=== PATIENT | male | born 1955 | race Caucasian/White ===

== ENCOUNTER 2017-12-02 15:13 | Inpatient (IN) | payer BC ==
[~2017-12-02 15:13] MED LIST: Metoprolol Tartrate 25 MG Tab PO SCH
[2017-12-02] MEDS ORDERED: Sodium Chloride 0.9% 10 ML Syringe FLUSH PRN (15:19)
[2017-12-02] MEDS ORDERED: Diltiazem 50 MG/10 ML SDV IVPUSH ONE ×2 (15:20→23:23)
[2017-12-02] MEDS ORDERED: Diltiazem 125 MG in Sodium Chloride 0.9% 100 ML IV SCH (15:30)
--- NOTE | 2017-12-02 15:35 | EDM.PDOC ---
ED HPI GENERAL MEDICAL PROBLEM - General Chief Complaint: Cardiovascular Problem Stated Complaint: [facility] Time Seen by Provider: 12/02/17 15:15 Source of Information: Reports: Patient, EMS, Provider History Limitations: Reports: No Limitations - History of Present Illness INITIAL COMMENTS - FREE TEXT/NARRATIVE: The patient presents by [facility] from Dr Espinoza's office with a rapid heart rate. This all started this weekend on Wednesday. The patient was outside in the heat and then noticed he was fatigued and light headed at times. He was also short of breath and at times noticed his heart was racing. He tried to drink plenty of fluids but that did not help. He had near syncope 4 times since then. He had no chest pain but his chest felt a little funny. He has no history of any medical problems. This has never happened before. He has no fever, chills, cough, chest pain, shortness of breath, abdominal pain, nausea or vomiting. He does not smoke. He saw Dr Espinoza today who did an EKG that showed a tachycardia that may be SVT. EMS had him bear down and his heart rate slowed and they could see flutter waves. Onset: Gradual Duration: Day(s): (6) Severity: Moderate Improves with: Reports: None Worsens with: Reports: None Associated Symptoms: Reports: Shortness of Breath. Denies: Chest Pain, Cough, Fever/Chills, Headaches, Nausea/Vomiting - Related Data Allergies Allergy/AdvReac Type Severity Reaction Status Date / Time No Known Allergies Allergy Verified 12/02/17 15:23 Home Meds: Home Meds Cholecalciferol (Vitamin D3) [Vitamin D3] 1 cap PO DAILY 12/02/17 [History] [place]-3/DHA/Epa/Fish Oil [[place]-3 EC Softgel] 1 each PO DAILY 12/02/17 [History] Red Yeast Rice 1 cap PO DAILY 12/02/17 [History] Scopolamine [Transderm-Scop] 1.5 mg TRDERM DAILY 12/02/17 [History] Past Medical History - Past Health History Medical/Surgical History: Denies Medical/Surgical History Social & Family History - Tobacco Use Smoking Status *Q: Never Smoker - Caffeine Use Caffeine Use: Reports: Coffee - Recreational Drug Use Recreational Drug Use: No ED ROS GENERAL - Review of Systems Review Of Systems: See Below Constitutional: Reports: No Symptoms HEENT: Reports: No Symptoms Respiratory: Reports: Shortness of Breath Cardiovascular: Reports: Lightheadedness, Palpitations, Other (Near syncope) Endocrine: Reports: No Symptoms GI/Abdominal: Reports: No Symptoms : Reports: No Symptoms Musculoskeletal: Reports: No Symptoms ED EXAM, GENERAL - Physical Exam Exam: See Below Exam Limited By: No Limitations General Appearance: Alert, No Apparent Distress Ears: Normal External Exam Nose: Normal Inspection Head: Atraumatic, Normocephalic Neck: Normal Inspection Respiratory/Chest: No Respiratory Distress, Lungs Clear, Normal Breath Sounds Cardiovascular: No Edema, No Murmur, Tachycardia GI/Abdominal: Soft, Non-Tender, No Organomegaly, No Mass Back Exam: Normal Inspection Extremities: Normal Inspection Neurological: Alert, Oriented, No Motor/Sensory Deficits EKG INTERPRETATION EKG Date: 12/02/17 Time: 14:25 Rhythm: A-Flutter Rate (Beats/Min): 140 [place]: Normal QRS: Normal ST-T: Normal QT: Normal Course - Vital Signs Last Recorded V/S: Last Vital Signs Temp 98 F 12/02/17 15:15 Pulse 141 H 12/02/17 15:33 Resp 18 12/02/17 15:15 BP 112/92 H 12/02/17 15:33 Pulse Ox 98 12/02/17 15:15 - Orders/Labs/Meds Orders: Active Orders 24 hr Category Date Time Status Cardiac Monitoring [RC] . DIRECTED Care 12/02/17 15:19 Active Peripheral IV Care [RC] . DIRECTED Care 12/02/17 15:20 Active Chest 1V Frontal [CR] Stat Exams 12/02/17 15:20 Taken Diltiazem 125 mg Med 12/02/17 15:30 Active Sodium Chloride 0.9% [Normal Saline] 100 ml IV TITRATE Sodium Chloride 0.9% [Normal Saline] 1,000 ml Med 12/02/17 15:30 Active IV ASDIRECTED Sodium Chloride 0.9% [Saline Flush] Med 12/02/17 15:19 Active 10 ml FLUSH ASDIRECTED PRN Peripheral IV Insertion Adult [OM.PC] Stat Oth 12/02/17 15:19 Ordered Medication Orders Diltiazem HCl 125 mg/ Sodium (Chloride) 125 mls @ 10 mls/hr IV TITRATE MINDI; Protocol Last Admin: 12/02/17 15:44 Dose: 10 mg/hr, 10 mls/hr Sodium Chloride (Normal Saline) 1,000 mls @ 125 mls/hr IV ASDIRECTED MINDI Last Admin: 12/02/17 15:40 Dose: 125 mls/hr Sodium Chloride (Saline Flush) 10 ml FLUSH ASDIRECTED PRN PRN Reason: Keep Vein Open Last Admin: 12/02/17 15:45 Dose: 10 ml Meds: Medications Generic Name Dose Route Start Last Admin Trade Name Freq PRN Reason Stop Dose Admin Diltiazem HCl 125 mg/ Sodium 125 mls @ 10 mls/hr 12/02/17 15:30 12/02/17 15: 44 Chloride IV 10 mg/hr TITRATE MINDI 10 mls/hr Administration Protocol 10 MG/HR Sodium Chloride 1,000 mls @ 125 mls/hr 12/02/17 15:30 12/02/17 15:40 Normal Saline IV 125 mls/hr ASDIRECTED MINDI Administration Sodium Chloride 10 ml 12/02/17 15:19 12/02/17 15:45 Saline Flush FLUSH 10 ml ASDIRECTED PRN Administration Keep Vein Open Discontinued Medications Generic Name Dose Route Start Last Admin Trade Name Freq PRN Reason Stop Dose Admin Diltiazem HCl 10 mg 12/02/17 15:20 12/02/17 15:33 Cardizem IVPUSH 12/02/17 15:21 10 mg ONETIME ONE Administration - Re-Assessments/Exams Free Text/Narrative Re-Assessment/Exam: 12/02/17 15:38 I ordered an IV saline lock, cardizem 10mg bolus and cardizem drip at 10mg/hr. 12/02/17 16:05 He will slow down at times and you can see obvious flutter waves. His CBC and CMP look good. His troponin is negative. His TSH is normal. His D-dimer is normal. I feel he needs to be admitted. I called Dr Millan and he agreed to the admission. I called Dr Espinoza to up date him. Departure - Departure Time of Disposition: 16:10 Disposition: Admitted As Inpatient 65 Condition: Fair Clinical Impression: Atrial flutter with rapid ventricular response, Lightheaded, Near syncope Forms: ED Department Discharge - My Orders Last 24 Hours: My Active Orders 12/02/17 15:19 Cardiac Monitoring [RC] . DIRECTED Sodium Chloride 0.9% [Saline Flush] 10 ml FLUSH ASDIRECTED PRN Peripheral IV Insertion Adult [OM.PC] Stat 12/02/17 15:20 Peripheral IV Care [RC] . DIRECTED Chest 1V Frontal [CR] Stat 12/02/17 15:30 Diltiazem 125 mg Sodium Chloride 0.9% [Normal Saline] 100 ml IV TITRATE Sodium Chloride 0.9% [Normal Saline] 1,000 ml IV ASDIRECTED - Assessment/Plan Last 24 Hours: My Active Orders 12/02/17 15:19 Cardiac Monitoring [RC] . DIRECTED Sodium Chloride 0.9% [Saline Flush] 10 ml FLUSH ASDIRECTED PRN Peripheral IV Insertion Adult [OM.PC] Stat 12/02/17 15:20 Peripheral IV Care [RC] . DIRECTED Chest 1V Frontal [CR] Stat 12/02/17 15:30 Diltiazem 125 mg Sodium Chloride 0.9% [Normal Saline] 100 ml IV TITRATE Sodium Chloride 0.9% [Normal Saline] 1,000 ml IV ASDIRECTED
[2017-12-02] MEDS: Sodium Chloride 0.9% 1,000 ML IV SCH ×2 (15:40→22:40)
[2017-12-02] MEDS ORDERED: Sodium Chloride 0.9% 500 ML IV ONE (17:11)
--- NOTE | 2017-12-02 19:41 | PCM.HP ---
H&P History of Present Illness - General Date of Service: 12/02/17 Admit Problem/Dx: Admission Diagnosis/Problem Admission Diagnosis/Problem Atrial flutter Source of Information: Patient, Family, Old Records, Provider, RN Notes Reviewed History Limitations: Reports: No Limitations - History of Present Illness Initial Comments - Free Text/Narative: This is a 61 yo healthy looking white male with hx/o JONATHAN on CPAP who comes in for evaluation of heart palpitation along with near syncope and was found in atrial flutter with 2:1 on conduction with a rapid rate as high as 150s. He was initially evaluated at his PCP's office for possible heat exhaustions and he was noted having SVT/A-flutter with heart rates in the 140s. Per patient, he has been working outside since the under extreme heat condition. Since that time, has been feeling lightheaded and dizzy although he has been drinking adequate fluids. He also develops shortness of breath, nausea , heart palpitation, decreased appetite and fatigue but denies any symptoms of chest pain or headaches. Additionally, he reports multiple near syncopal episode and his symptoms get worse when he stands up. Patient carries no history of cardiac or pulmonary disease. His initial workup in the clinic shows a fairly unremarkable CBC. His BMP is significant for glucose of 104, anion gap of 9, and AST of 12. His initial workup in emergency department shows a normal troponin and d-dimer level. Patient received initial treatment in the emergency department with Cardizem drip before he was sent to the unit for further management. He is being admitted for management of Atrial flutter with RVR. He is full code. - Related Data Allergies/Adverse Reactions: Allergies Allergy/AdvReac Type Severity Reaction Status Date / Time No Known Allergies Allergy Verified 12/02/17 15:23 Home Medications: Home Meds Cholecalciferol (Vitamin D3) [Vitamin D3] 1 cap PO DAILY 12/02/17 [History] [place]-3/DHA/Epa/Fish Oil [[place]-3 EC Softgel] 1 each PO DAILY 12/02/17 [History] Red Yeast Rice 1 cap PO DAILY 12/02/17 [History] Scopolamine [Transderm-Scop] 1.5 mg TRDERM DAILY 12/02/17 [History] Past Medical History - Past Health History Medical/Surgical History: Denies Medical/Surgical History Social & Family History - Tobacco Use Smoking Status *Q: Never Smoker - Caffeine Use Caffeine Use: Reports: Coffee - Recreational Drug Use Recreational Drug Use: No H&P Review of Systems - Review of Systems: Review Of Systems: ROS reveals no pertinent complaints other than HPI. Exam - Exam Exam: See Below - Vital Signs Vital Signs: Last Vital Signs Temp 36.6 C 12/02/17 15:15 Pulse 141 H 12/02/17 15:33 Resp 18 12/02/17 15:15 BP 112/92 H 12/02/17 15:33 Pulse Ox 98 12/02/17 15:15 Weight: 93.44 kg - Exam General: Alert, Oriented, Cooperative, Mild Distress HEENT: Conjunctiva Clear, EACs Clear, EOMI, Hearing Intact, Mucosa Moist & [place] , Nares Patent, Posterior Pharynx Clear, Pupils Equal, Pupils Reactive, TMs Clear Neck: Supple, Trachea Midline, +2 Carotid Pulse wo Bruit, Full Range of Motion. No: Thyromegaly Lungs: Clear to Auscultation, Normal Respiratory Effort Cardiovascular: Irregular Rhythm, Other (Irregular Rate). No: Systolic Murmur, Diastolic Murmur GI/Abdominal Exam: Normal Bowel Sounds, Soft, Non-Tender, No Organomegaly, No Distention, No Abnormal Bruit, No Mass (Male) Exam: Deferred Rectal (Males) Exam: Deferred Back Exam: Normal Inspection, Full Range of Motion Extremities: Normal Inspection, Normal Range of Motion, Non-Tender, No Pedal Edema, Normal Capillary Refill Peripheral Pulses: 3+: Posterior Tibial (L), Posterior Tibial (R), Dorsalis Pedis (L), Dorsalis Pedis (R) Skin: Warm, Dry, Intact Neuro Extensive - Mental Status: Oriented x3, Normal Cognition, Memory Intact Neuro Extensive - Motor, Sensory, Reflexes: CN II-XII Intact, Normal Gait Psychiatric: Alert, Normal Affect, Normal Mood - Patient Data Result Diagrams: 12/03/17 05:37 12/03/17 05:37 EKG INTERPRETATION EKG Date: 12/02/17 Time: 14:25 Rhythm: A-Flutter (2:1 conduction) Rate (Beats/Min): 14 [place]: Normal QRS: Normal ST-T: Normal QT: Normal Comparison: NA - No Prior EKG Problem List Initiated/Reviewed/Updated: Yes Orders Last 24hrs: Active Orders 24 hr Category Date Time Status Patient Status [ADT] Routine ADT 12/02/17 18:55 Active Cardiac Monitoring [RC] . DIRECTED Care 12/02/17 15:19 Active Peripheral IV Care [RC] . DIRECTED Care 12/02/17 15:20 Active Chest 1V Frontal [CR] Stat Exams 12/02/17 15:20 Taken Cholecalciferol (Vitamin D3) [Vitamin D3] Med 12/03/17 09:00 Ordered 1 cap PO DAILY Diltiazem 125 mg Med 12/02/17 15:30 Active Sodium Chloride 0.9% [Normal Saline] 100 ml IV TITRATE [place]-3/DHA/Epa/Fish Oil [[place]-3 EC Softgel] Med 12/03/17 09:00 Ordered 1 each PO DAILY Red Yeast Rice [Red Yeast Rice] Med 12/03/17 09:00 Ordered 1 cap PO DAILY Scopolamine [Transderm-Scop] Med 12/03/17 09:00 Ordered 1.5 mg TRDERM DAILY Sodium Chloride 0.9% [Normal Saline] 1,000 ml Med 12/02/17 15:30 Active IV ASDIRECTED Sodium Chloride 0.9% [Saline Flush] Med 12/02/17 15:19 Active 10 ml FLUSH ASDIRECTED PRN Peripheral IV Insertion Adult [OM.PC] Stat Oth 12/02/17 15:19 Ordered Medication Orders Cholecalciferol (Vitamin D3) unit PO DAILY MINDI Diltiazem HCl 125 mg/ Sodium (Chloride) 125 mls @ 10 mls/hr IV TITRATE MINDI; Protocol Last Titration: 12/02/17 18:20 Dose: 5 mg/hr, 5 mls/hr Admin: 12/02/17 15:44 Dose: 10 mg/hr, 10 mls/hr Sodium Chloride (Normal Saline) 1,000 mls @ 125 mls/hr IV ASDIRECTED MINDI Last Admin: 12/02/17 15:40 Dose: 125 mls/hr Non-Formulary Medication ([place]-3/Dha/Epa/Fish Oil [[place]-3 Ec Softgel]) 1 each PO DAILY MINDI Non-Formulary Medication (Red Yeast Rice [Red Yeast Rice]) 1 cap PO DAILY MINDI Scopolamine (Transderm-Scop) 1.5 mg TRDERM DAILY MINDI Sodium Chloride (Saline Flush) 10 ml FLUSH ASDIRECTED PRN PRN Reason: Keep Vein Open Last Admin: 12/02/17 15:45 Dose: 10 ml Assessment/Plan Comment:: Assessment/Plan: Acute: Atrial Flutter w/ RVR - Initially seen at the clinic and was diagnosed with SVT/A-Flutter with 2:1 conduction - HR as high as 150s - Risk factor: Heat Exhaustion and Heavy Caffeine Intake (Drinks significant amount of coffee throughout the day per ) - Troponin and D-Dimer both negative - Check for thyroid panel - Received Cardizem drip in ED but his pressure is now in the hypotensive range - Discontinued Cardizem and will out him ro Metoprolol Tartrate 25 mg po BID and PRN IV Lopressor 5 mg Q4H for HR > 110 - [id number] Score is 0; if converted he probably would not need anticoagulant; low dose ASA would be sufficient - Offered anticoagulation: Traditional vs NOACs--> he selected novel anticoagulation with preference to eliquis - I would consider anticoagulation even though his [id number] Score is 0 as he has been on this rhythm for over 48 hrs; he may have a clot in his heart until proven wrong with 2D echo. Relative Hypotension - 2/2 Cardizem - Will d/c CBB Plan: Admit to ICU Resume Home Meds Routine AM Labs Thyroid Panel and UDS if not already done Eliquis 5 mg po BID first dose tonight for stroke and dvt prophylaxis Diet regular Advised to cut down caffeine intake 2D echo in AM Additional orders as above Code status: 1
[2017-12-02] MEDS ORDERED: LORazepam 2 MG/ML SDV IV PRN (19:42)
[2017-12-02] MEDS ORDERED: Promethazine 12.5 MG in Sodium Chloride 0.9% 50 ML IV PRN (19:42)
[2017-12-02] MEDS ORDERED: HYDROmorphone 0.5 MG/0.5 ML SYRINGE IVPUSH PRN (19:42)
[2017-12-02] MEDS ORDERED: Albuterol/Ipratropium 3.0-0.5 MG/3 ML Neb Soln NEB PRN (19:42)
[2017-12-02] MEDS ORDERED: Acetaminophen 325 MG Tab PO PRN (19:42)
[2017-12-02] MEDS ORDERED: Ondansetron 4 MG/2 ML SDV IV PRN (19:42)
[2017-12-02] MEDS ORDERED: Temazepam 7.5 MG Cap PO PRN (19:42)
[2017-12-02] MEDS ORDERED: Polyethylene Glycol 3350 Powder 17 GM Packet PO PRN (19:42)
[2017-12-02] MEDS ORDERED: Docusate Sodium 100 MG Cap PO PRN (19:42)
[2017-12-02] MEDS ORDERED: Acetaminophen/HYDROcodone 325-5 MG Tab PO PRN (19:42)
[2017-12-02] MEDS ORDERED: Bisacodyl 5 MG Tab PO PRN (19:42)
[2017-12-02] MEDS ORDERED: Metoprolol Tartrate 5 MG/5 ML SDV ONE ×2 (20:03→21:59)
[2017-12-02] MEDS ORDERED: Metoprolol Tartrate 5 MG/5 ML SDV IVPUSH ONE (20:03)
[2017-12-02] MEDS ORDERED: Metoprolol Tartrate 25 MG Tab PO ONE ×2 (20:29→21:00)
[2017-12-02] MEDS ORDERED: LORazepam 2 MG/ML SDV IVPUSH PRN (20:30)
[2017-12-02] MEDS ORDERED: Metoprolol Tartrate 5 MG/5 ML SDV IVPUSH PRN (20:30)
[2017-12-02] MEDS ORDERED: Acetaminophen/Butalbital/Caffeine 325-50-40 MG Tab PO PRN (20:43)
[2017-12-02] MEDS ORDERED: Metoprolol Tartrate 50 MG Tab ONE ×2 (21:17→22:28)
[2017-12-02] MEDS: Apixaban 5 MG Tab PO SCH (21:27)
[2017-12-02] MEDS: Metoprolol Tartrate 50 MG Tab PO SCH (22:29)
[2017-12-02] MEDS: Metoprolol Tartrate 5 MG/5 ML SDV IVPUSH PRN (22:43)
[2017-12-02] MEDS ORDERED: Esmolol/Normal Saline 2.5 GM/250 ML BAG IV SCH (23:00)
[2017-12-02] MEDS ORDERED: Diltiazem 50 MG/10 ML SDV ONE (23:27)
[2017-12-02] MEDS ORDERED: Diltiazem 50 MG/10 ML SDV IVPUSH PRN (23:58)
[2017-12-03] MEDS ORDERED: Temazepam 7.5 MG Cap ONE (00:56)
[2017-12-03] MEDS: Sodium Chloride 0.9% 1,000 ML IV SCH ×2 (06:11→16:11)
[2017-12-03] MEDS ORDERED: HYDROmorphone 0.5 MG/0.5 ML Syringe IVPUSH PRN (07:15)
[2017-12-03] MEDS ORDERED: Scopolamine 1.5 MG Transdermal Patch TRDERM SCH (09:00)
[2017-12-03] MEDS ORDERED: Cholecalciferol (Vitamin D3) 5,000 UNIT Tab PO SCH (09:00)
[2017-12-03] MEDS ORDERED: RED YEAST RICE PO SCH (09:00)
[2017-12-03] MEDS ORDERED: Fish Oil/Omega-3 Fatty Acids 1 Gm Cap PO SCH (09:00)
[2017-12-03] MEDS ORDERED: Calcium Carbonate 600 MG Tab PO ONE (09:30)
[2017-12-03] MEDS: Apixaban 5 MG Tab PO SCH (09:58)
[2017-12-03] MEDS: Metoprolol Tartrate 50 MG Tab PO SCH (09:58)
[2017-12-03] MEDS: Metoprolol Tartrate 5 MG/5 ML SDV IVPUSH PRN (09:59)
--- NOTE | 2017-12-03 10:06 | PCM.PN ---
- General Info Date of Service: 12/03/17 Admission Dx/Problem (Free Text): Admission Diagnosis/Problem Admission Diagnosis/Problem Atrial flutter Subjective Update: Follow Up Functional Status: Reports: Pain Controlled, Tolerating Diet, Ambulating, Urinating - Review of Systems General: Denies: Fever, Weakness, Fatigue, Malaise, Chills HEENT: Reports: No Symptoms Pulmonary: Reports: No Symptoms Cardiovascular: Denies: Chest Pain, Palpitations, Dyspnea on Exertion, Edema, Lightheadedness Gastrointestinal: Denies: Abdominal Pain, Decreased Appetite, Nausea, Vomiting Genitourinary: Denies: No Symptoms Musculoskeletal: Reports: No Symptoms Skin: Reports: No Symptoms Neurological: Denies: Confusion, Dizziness, Seizure, Syncope, Difficulty Walking , Weakness, Gait Disturbance Psychiatric: Denies: Confusion, Anxiety, Agitation, Hallucinations Systems Review Comment:: No overnight or acute issues. He denies any heart palpitations, shortness of breath or chest pain. He felt awful when he drank a cup of coffee this AM. His heart rate is now in the 120s. - Patient Data Vitals - Most Recent: Last Vital Signs Temp 37.1 C 12/03/17 04:00 Pulse 125 H 12/03/17 09:59 Resp 16 12/03/17 08:00 BP 98/82 12/03/17 09:59 Pulse Ox 100 12/03/17 08:00 Weight - Most Recent: 93.44 kg I&O - Last 24 Hours: Intake & Output 12/02/17 12/03/17 12/03/17 22:59 06:59 14:59 Intake Total 1629 Balance 1629 Lab Results Last 24 Hours: Laboratory Results - last 24 hr 12/02/17 12/03/17 12/03/17 Range/Units 15:10 00:55 05:37 WBC 3.33 L (4.23-9.07) K/mm3 RBC 4.26 L (4.63-6.08) M/mm3 Hgb 13.1 L (13.7-17.5) gm/L Hct 40.3 (40.1-51.0) % MCV 94.6 H (79.0-92.2) fl MCH 30.8 (25.7-32.2) pg MCHC 32.5 (32.2-35.5) g/dl RDW Std Deviation 44.4 H (35.1-43.9) fL Plt Count 188 (163-337) K/mm3 MPV 10.2 (9.4-12.3) fl Neut % (Auto) 63.7 (34.0-67.9) % Lymph % (Auto) 26.1 (21.8-53.1) % [place] % (Auto) 8.4 (5.3-12.2) % Eos % (Auto) 1.5 (0.8-7.0) Baso % (Auto) 0.3 (0.1-1.2) % Neut # (Auto) 2.12 (1.78-5.38) K/mm3 Lymph # (Auto) 0.87 L (1.32-3.57) K/mm3 [place] # (Auto) 0.28 L (0.30-0.82) K/mm3 Eos # (Auto) 0.05 (0.04-0.54) K/mm3 Baso # (Auto) 0.01 (0.01-0.08) K/mm3 Sodium (136-145) mEq/L Potassium (3.5-5.1) mEq/L Chloride (98-107) mEq/L Carbon Dioxide (21-32) mEq/L Anion Gap (5-15) BUN (7-18) mg/dL Creatinine (0.7-1.3) mg/dL Est Cr Clr Drug Dosing mL/min Estimated GFR (MDRD) (>60) mL/min BUN/Creatinine Ratio (14-18) Glucose (80-115) mg/dL Calcium (8.5-10.1) mg/dL Magnesium (1.8-2.4) mg/dl Troponin I (0.00-0.056) ng/mL Free T4 0.79 (0.76-1.46) ng/dL TSH 3rd Generation 1.613 (0.358-3.74) uIU/mL Urine Opiates Screen Negative (NEGATIVE) Ur Buprenorphine Scrn Negative (NEGATIVE) Ur Oxycodone Screen Negative (NEGATIVE) Urine Methadone Screen Negative (NEGATIVE) Ur Propoxyphene Screen Negative (NEGATIVE) Ur Barbiturates Screen Negative (NEGATIVE) Ur Tricyclics Screen Negative (NEGATIVE) Ur Phencyclidine Scrn Negative (NEGATIVE) Ur Amphetamine Screen Negative (NEGATIVE) U Methamphetamines Scrn Negative (NEGATIVE) U Benzodiazepines Scrn Negative (NEGATIVE) U Cocaine Metab Screen Negative (NEGATIVE) U Marijuana (THC) Screen Negative (NEGATIVE) 12/03/17 Range/Units 05:37 WBC (4.23-9.07) K/mm3 RBC (4.63-6.08) M/mm3 Hgb (13.7-17.5) gm/L Hct (40.1-51.0) % MCV (79.0-92.2) fl MCH (25.7-32.2) pg MCHC (32.2-35.5) g/dl RDW Std Deviation (35.1-43.9) fL Plt Count (163-337) K/mm3 MPV (9.4-12.3) fl Neut % (Auto) (34.0-67.9) % Lymph % (Auto) (21.8-53.1) % [place] % (Auto) (5.3-12.2) % Eos % (Auto) (0.8-7.0) Baso % (Auto) (0.1-1.2) % Neut # (Auto) (1.78-5.38) K/mm3 Lymph # (Auto) (1.32-3.57) K/mm3 [place] # (Auto) (0.30-0.82) K/mm3 Eos # (Auto) (0.04-0.54) K/mm3 Baso # (Auto) (0.01-0.08) K/mm3 Sodium 142 (136-145) mEq/L Potassium 4.5 (3.5-5.1) mEq/L Chloride 109 H (98-107) mEq/L Carbon Dioxide 27 (21-32) mEq/L Anion Gap 10.5 (5-15) BUN 19 H (7-18) mg/dL Creatinine 1.2 (0.7-1.3) mg/dL Est Cr Clr Drug Dosing 70.06 mL/min Estimated GFR (MDRD) > 60 (>60) mL/min BUN/Creatinine Ratio 15.8 (14-18) Glucose 104 (80-115) mg/dL Calcium 7.9 L (8.5-10.1) mg/dL Magnesium 2.1 (1.8-2.4) mg/dl Troponin I < 0.017 (0.00-0.056) ng/mL Free T4 (0.76-1.46) ng/dL TSH 3rd Generation (0.358-3.74) uIU/mL Urine Opiates Screen (NEGATIVE) Ur Buprenorphine Scrn (NEGATIVE) Ur Oxycodone Screen (NEGATIVE) Urine Methadone Screen (NEGATIVE) Ur Propoxyphene Screen (NEGATIVE) Ur Barbiturates Screen (NEGATIVE) Ur Tricyclics Screen (NEGATIVE) Ur Phencyclidine Scrn (NEGATIVE) Ur Amphetamine Screen (NEGATIVE) U Methamphetamines Scrn (NEGATIVE) U Benzodiazepines Scrn (NEGATIVE) U Cocaine Metab Screen (NEGATIVE) U Marijuana (THC) Screen (NEGATIVE) Med Orders - Current: Current Medications Acetaminophen (Tylenol) 650 mg PO Q4H PRN PRN Reason: Pain (Mild 1-3)/fever Acetaminophen/Butalbital/Caffeine (Fioricet 325-50-40 Mg) 2 tab PO Q6H PRN PRN Reason: Headache Hydrocodone Bitart/Acetaminophen ([place] 325-5 Mg) 1 tab PO Q4H PRN PRN Reason: Pain (moderate 4-6) Albuterol/Ipratropium (Duoneb 3.0-0.5 Mg/3 Ml) 3 ml NEB Q4H PRN PRN Reason: Shortness Of Breath/wheezing Apixaban (Eliquis) 5 mg PO BID [facility] Last Admin: 12/03/17 09:58 Dose: 5 mg Bisacodyl (Dulcolax) 5 mg PO DAILY PRN PRN Reason: Constipation Calcium Carbonate/Glycine (Calcium Carbonate) 1,200 mg PO BIDMIALS [facility] Stop: 12/04/17 07:01 Cholecalciferol (Vitamin D3) 5,000 unit PO DAILY [facility] Last Admin: 12/03/17 10:05 Dose: Not Given Diltiazem HCl (Cardizem) 10 mg IVPUSH Q2H PRN PRN Reason: Tachycardia Docusate Sodium (Colace) 100 mg PO BID PRN PRN Reason: Constipation Fish Oil (Fish Oil) 1 gm PO DAILY [facility] Last Admin: 12/03/17 10:04 Dose: Not Given Hydromorphone HCl (Dilaudid) 0.25 mg IVPUSH Q2H PRN PRN Reason: Pain (severe 7-10) Diltiazem HCl 125 mg/ Sodium (Chloride) 125 mls @ 10 mls/hr IV TITRATE MINDI; Protocol Last Titration: 12/03/17 03:11 Dose: 0 mg/hr, 0 mls/hr Sodium Chloride (Normal Saline) 1,000 mls @ 125 mls/hr IV ASDIRECTED MINDI Last Admin: 12/03/17 06:11 Dose: 125 mls/hr Promethazine HCl 12.5 mg/ (Sodium Chloride) 50.5 mls @ 100 mls/hr IV Q6H PRN PRN Reason: Nausea/Vomiting Amiodarone HCl/Dextrose (Nexterone In Dextrose 360 Mg/200 Ml) 360 mg in 200 mls @ 33.333 mls/hr IV ASDIRECTED MINDI; Protocol Last Admin: 12/03/17 03:49 Dose: 33.333 mls/hr Lorazepam (Ativan) 0.5 mg IV Q6H PRN PRN Reason: Anxiety Lorazepam (Ativan) 2 mg IVPUSH Q4H PRN PRN Reason: Seizures Magnesium Sulfate (Pharmacy To Dose - Magnesium Replacement) 1 dose .XX ASDIRECTED [facility] Metoprolol Tartrate (Lopressor) 5 mg IVPUSH Q2H PRN PRN Reason: Tachycardia Last Admin: 12/03/17 09:59 Dose: 5 mg Metoprolol Tartrate (Lopressor) 50 mg PO Q12H [facility]INDI Last Admin: 12/03/17 09:58 Dose: 50 mg Miscellaneous Information (Remove Patch) 0 ea TRDERM Q72H [facility] Ondansetron HCl (Zofran) 4 mg IV Q6H PRN PRN Reason: Nausea/Vomiting Polyethylene Glycol (Miralax) 17 gm PO DAILY PRN PRN Reason: Constipation Potassium Chloride (Pharmacy To Dose - Potassium Replacement) 1 dose .XX ASDIRECTED [facility] Scopolamine (Transderm-Scop) 1.5 mg TRDERM Q72H [facility] Last Admin: 12/03/17 10:05 Dose: Not Given Senna/Docusate Sodium (Senna Plus) 1 tab PO BID PRN PRN Reason: Constipation Sodium Chloride (Saline Flush) 10 ml FLUSH ASDIRECTED PRN PRN Reason: Keep Vein Open Last Admin: 12/02/17 15:45 Dose: 10 ml Temazepam (Restoril) 7.5 mg PO BEDTIME PRN PRN Reason: Sleep Last Admin: 12/03/17 00:57 Dose: 7.5 mg Discontinued Medications Calcium Carbonate/Glycine (Calcium Carbonate) 1,200 mg PO ONETIME ONE Stop: 12/03/17 09:31 Last Admin: 12/03/17 09:57 Dose: 1,200 mg Diltiazem HCl (Cardizem) 10 mg IVPUSH ONETIME ONE Stop: 12/02/17 15:21 Last Admin: 12/02/17 15:33 Dose: 10 mg Diltiazem HCl (Cardizem) 10 mg IVPUSH ONETIME ONE Stop: 12/02/17 23:24 Last Admin: 12/02/17 23:28 Dose: 10 mg Diltiazem HCl (Cardizem) Confirm Administered Dose 50 mg .ROUTE .STK-MED ONE Stop: 12/02/17 23:28 Last Admin: 12/03/17 03:46 Dose: Not Given Hydromorphone HCl (Dilaudid) 0.25 mg IVPUSH Q2H PRN PRN Reason: Pain (severe 7-10) Sodium Chloride (Normal Saline) 500 mls @ 1,000 mls/hr IV .BOLUS ONE Stop: 12/02/17 17:40 Last Admin: 12/02/17 17:13 Dose: 1,000 mls/hr Esmolol HCl (Brevibloc In Ns Premix) 2.5 gm in 250 mls @ 28.032 mls/hr IV TITRATE MINDI; Protocol Esmolol HCl (Esmolol Hcl In Sterile Water 2,500 Mg/250 Ml) 250 mls @ 28.032 mls /hr IV TITRATE MINDI; Protocol Last Titration: 12/03/17 02:37 Dose: 0 mcg/kg/min, 0 mls/hr Esmolol HCl (Esmolol Hcl In Sterile Water 2,500 Mg/250 Ml) Confirm Administered Dose 250 mls @ as directed .ROUTE .STK-MED ONE Stop: 12/02/17 22:59 Last Admin: 12/03/17 03:46 Dose: Not Given Amiodarone HCl/Dextrose (Nexterone In Dextrose 150 Mg/100 Ml) 100 mls @ 600 mls /hr IV .BOLUS ONE; Protocol Stop: 12/03/17 03:21 Last Admin: 12/03/17 03:38 Dose: 600 mls/hr Metoprolol Tartrate (Lopressor) 5 mg IVPUSH ONETIME ONE Stop: 12/02/17 20:04 Last Admin: 12/02/17 20:03 Dose: 5 mg Metoprolol Tartrate (Lopressor) 25 mg PO Q12H MINDI Metoprolol Tartrate (Lopressor) 25 mg PO ONETIME ONE Stop: 12/02/17 20:30 Metoprolol Tartrate (Lopressor) 5 mg IVPUSH Q4H PRN PRN Reason: Tachycardia Metoprolol Tartrate (Lopressor) 25 mg PO ONETIME ONE Stop: 12/02/17 21:01 Last Admin: 12/02/17 21:29 Dose: 25 mg Metoprolol Tartrate (Lopressor) Confirm Administered Dose 5 mg .ROUTE .STK-MED ONE Stop: 12/02/17 20:04 Last Admin: 12/03/17 03:47 Dose: Not Given Metoprolol Tartrate (Lopressor) Confirm Administered Dose 50 mg .ROUTE .STK-MED ONE Stop: 12/02/17 21:18 Last Admin: 12/03/17 03:47 Dose: Not Given Metoprolol Tartrate (Lopressor) Confirm Administered Dose 5 mg .ROUTE .STK-MED ONE Stop: 12/02/17 22:00 Last Admin: 12/03/17 03:47 Dose: Not Given Metoprolol Tartrate (Lopressor) Confirm Administered Dose 50 mg .ROUTE .STK-MED ONE Stop: 12/02/17 22:29 Last Admin: 12/03/17 03:47 Dose: Not Given Non-Formulary Medication (Red Yeast Rice [Red Yeast Rice]) 1 cap PO DAILY MINDI Temazepam (Restoril) Confirm Administered Dose 7.5 mg .ROUTE .STK-MED ONE Stop: 12/03/17 00:57 Last Admin: 12/03/17 03:46 Dose: Not Given - Exam General: Alert, Oriented, Cooperative, No Acute Distress HEENT: Pupils Equal, Pupils Reactive, EOMI, Mucous Membr. Moist/[place] Neck: Supple, Trachea Midline, No JVD Lungs: Clear to Auscultation, Normal Respiratory Effort Cardiovascular: Irregular Rhythm GI/Abdominal Exam: Normal Bowel Sounds, Soft, Non-Tender, No Organomegaly, No Distention, No Abnormal Bruit, No Mass (Male) Exam: Deferred Back Exam: Normal Inspection, Full Range of Motion Extremities: Normal Inspection, Normal Range of Motion, Non-Tender, No Pedal Edema, Normal Capillary Refill Peripheral Pulses: 2+: Dorsalis Pedis (L), Dorsalis Pedis (R) Skin: Warm, Dry, Intact Wound/Incisions: Healing Well Neurological: No New Focal Deficit Psy/Mental Status: Alert, Normal Affect, Normal Mood - Problem List Review Problem List Initiated/Reviewed/Updated: Yes - My Orders Last 24 Hours: My Active Orders 12/02/17 19:42 Height and Weight [RC] 04 Up ad [place] [RC] ASDIRECTED VTE/DVT Education [RC] PER UNIT ROUTINE Vital Signs [RC] Q1HR Consult to Case Management [CONS] Routine Consult to Fitness Center Attendant [CONS] Routine Acetaminophen [Tylenol] 650 mg PO Q4H PRN Acetaminophen/HYDROcodone [[place] 325-5 MG] 1 tab PO Q4H PRN Albuterol/Ipratropium [DuoNeb 3.0-0.5 MG/3 ML] 3 ml NEB Q4H PRN Bisacodyl [Dulcolax] 5 mg PO DAILY PRN Docusate Sodium [Colace] 100 mg PO BID PRN Docusate Sodium/Sennosides [Senna Plus] 1 tab PO BID PRN LORazepam [Ativan] 0.5 mg IV Q6H PRN Ondansetron [Zofran] 4 mg IV Q6H PRN Polyethylene Glycol 3350 [MiraLAX] 17 gm PO DAILY PRN Promethazine [Phenergan] 12.5 mg Sodium Chloride 0.9% [Normal Saline] 50 ml IV Q6H Temazepam [Restoril] 7.5 mg PO BEDTIME PRN Resuscitation Status Routine 12/02/17 19:45 RT Aerosol Therapy [RC] ASDIRECTED 12/02/17 20:30 LORazepam [Ativan] 2 mg IVPUSH Q4H PRN Magnesium Rep Pharmacy to Dose [Pharmacy to Dose - Magnesium Replacement] 1 dose .XX ASDIRECTED Potassium Rep Pharmacy to Dose [Pharmacy to Dose - Potassium Replacement] 1 dose .XX ASDIRECTED 12/02/17 20:43 Acetaminophen/Butalbital/Caff [Fioricet 325-50-40 MG] 2 tab PO Q6H PRN 12/02/17 21:00 Apixaban [Eliquis] 5 mg PO BID 12/02/17 21:41 Metoprolol Tartrate [Lopressor] 5 mg IVPUSH Q2H PRN 12/02/17 22:00 Metoprolol Tartrate [Lopressor] 50 mg PO Q12H 12/02/17 23:58 Diltiazem [Cardizem] 10 mg IVPUSH Q2H PRN 12/02/17 Dinner Regular Diet [DIET] 12/03/17 00:55 DRUG SCREEN, URINE REFLEX [URCHEM] Stat 12/03/17 03:15 Amiodarone In Dextrose,Iso-Osm [Nexterone in Dextrose 360 MG/200 ML] 360 mg in 200 ml IV ASDIRECTED 12/03/17 07:00 Echo Comp wo Cont [US] Routine 12/03/17 07:15 HYDROmorphone [Dilaudid] 0.25 mg IVPUSH Q2H PRN 12/03/17 09:00 Cholecalciferol (Vitamin D3) [Vitamin D3] 5,000 unit PO DAILY Fish Oil/[place]-3 Fatty Acids [Fish Oil] 1 gm PO DAILY Scopolamine [Transderm-Scop] 1.5 mg TRDERM Q72H 12/03/17 09:12 EKG 12 Lead [EKG Documentation Completion] [RC] ROUTINE 12/03/17 17:00 Calcium Carbonate 1,200 mg PO BIDMEALS 12/06/17 09:00 Remove Patch 0 ea TRDERM Q72H - Plan Plan:: Assessment/Plan: Acute: Atrial Flutter w/ RVR vs PSVT - Initially seen at the clinic and was diagnosed with SVT/A-Flutter with 2:1 conduction - HR as high as 150s--> now int he 102s - Risk factor: Heat Exhaustion and Heavy Caffeine Intake (Drinks significant amount of coffee throughout the day per ) - THyrpodi panel, Troponin and D-Dimer were all negative - Received Cardizem drip in ED but his pressure is now in the hypotensive range - Tried CCB and BB but w/o much success; he is currently on amiodarone drip and beta sarika - He received adequate fluids for volume expansion - [id number] Score is 0; if converted he probably would not need anticoagulant; low dose ASA would be sufficient - Offered anticoagulation: Traditional vs NOACs--> he selected novel anticoagulation with preference to eliquis - I would consider anticoagulation even though his [id number] Score is 0 as he has been on this rhythm for over 48 hrs; he may have a clot in his heart until proven wrong with 2D echo. Relative Hypotension - 2/2 Cardizem - Will d/c CBB Plan: He is clinically stable Routine AM Labs Diet regular 2D echo in AM once HR is better Consider cardiology consult if no significant improvement of rhythm Additional orders as above Code status: 1
[2017-12-03] MEDS ORDERED: Adenosine 6 MG/2 ML SDV IVPUSH ONE ×2 (12:04)
[2017-12-03] MEDS ORDERED: Adenosine 12 MG/4 ML SDV IVPUSH ONE (12:05)
[2017-12-03] MEDS ORDERED: Sodium Chloride 0.9% 1,000 ML IV ONE (12:25)
--- NOTE | 2017-12-03 12:35 | PCM.SN ---
- Free Text/Narrative Note: Called [facility] cardiology parks and recreation worker for telephone consultation. Spoke to Dr. Avila, I discussed the case with her and made her clearly aware that this gentleman has no significant past medical history except for JONATHAN on CPAP. He initially responded to Cardizem upon presentation to ED but now resistant with current regimen. We have tried cardizem along with beta sarika. His cardizem was stopped due to significant hypotension. Overnight he was switched to amiodarone drip due to non-responsive to beta blockade. Currently, he is on amiodarone along with beta sarika with heart rate in the 120s. His [id number] score is 0. He is clinically stable but his pressure was in the upper range of hypotension with excellent MAP. His repeat troponin is normal. His repeat EKG this morning appears atrial flutter with 2:1 conduction but could not r/o atrial tachycardia . I did express concerns of maybe trying adenosine to reveal the true rhythm but worried about possible blood clot in his heart since he has been in this rhythm > 48hrs prior to presentation to ED. After discussing the case with her, Dr. Avila states that given his low risk factors as well as his [id number] score. It is unlikely that he has blood clot in his heart and therefore a trial of adenosine as initial step in the management of his abnormal rhythm. Informed treatment plan with family and patient, they were receptive to it. However after patient and his family had a brief discussion abut further care, they decided to seek upper level of care and they chose [facility] in [place] for transfer hospital.
--- NOTE | 2017-12-03 14:58 | PCM.DCSUM1 ---
Discharge Summary - Hospital Course Brief History: This is a 61 yo healthy looking white male with hx/o JONATHAN on CPAP who comes in for evaluation of heart palpitation along with near syncope and was found in atrial flutter with 2:1 on conduction with a rapid rate as high as 150s. He was initially evaluated at his PCP's office for possible heat exhaustions and he was noted having SVT/A-flutter with heart rates in the 140s. Per patient, he has been working outside since the under extreme heat condition. Since that time, has been feeling lightheaded and dizzy although he has been drinking adequate fluids. He also develops shortness of breath, nausea , heart palpitation, decreased appetite and fatigue but denies any symptoms of chest pain or headaches. Additionally, he reports multiple near syncopal episode and his symptoms get worse when he stands up. Patient carries no history of cardiac or pulmonary disease. His initial workup in the clinic shows a fairly unremarkable CBC. His BMP is significant for glucose of 104, anion gap of 9, and AST of 12. His initial workup in emergency department shows a normal troponin and d-dimer level. Patient received initial treatment in the emergency department with Cardizem drip before he was sent to the unit for further management. He is being admitted for management of Atrial flutter with RVR. He is full code. Diagnosis: Stroke: No Modified Melanie Scale: No Symptoms at All Modified Melanie Scale Score: 0 - Discharge Data Discharge Date: 12/03/17 Discharge Disposition: DC/Tfer to Acute Hospital 02 Condition: Fair - Discharge Diagnosis/Problem(s) (1) Atrial flutter with rapid ventricular response SNOMED Code(s): 2282716 ICD Code: I48.92 - UNSPECIFIED ATRIAL FLUTTER Status: Acute Current Visit : No (2) Hypotension SNOMED Code(s): 98885452 ICD Code: I95.9 - HYPOTENSION, UNSPECIFIED Status: Acute Current Visit: Yes Qualifiers: Hypotension type: hypotension due to drug Qualified Code(s): I95.2 - Hypotension due to drugs (3) JONATHAN on CPAP SNOMED Code(s): 05310065 ICD Code: G47.33 - OBSTRUCTIVE SLEEP APNEA (ADULT) (PEDIATRIC); 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 - 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 MACHINES AND DEVICES Status: Chronic Current Visit: Yes (4) Near syncope SNOMED Code(s): 046986047 ICD Code: R55 - SYNCOPE AND COLLAPSE Status: Resolved Current Visit: No - Patient Summary/Data Operative Procedure(s) Performed: None Complications: None Consults: Consultations 12/02/17 19:42 Consult to Case Management [CONS] Routine Consult to Manager [employer] [CONS] Routine Labs Pending at D/C: None Recommended Follow-up Testing/Procedures: None Planned Operative Procedure(s) after DC: None Hospital Course: curtis was primarily admitted for medical management of what felt to be atrial flutter with 2 to one conduction versusparoxysmalsupra-ventriculartachycardia. He carries no significant past medical history except for JONATHAN compliant with CPAP. Patient received initial treatment in the emergency department with Cardizem unfortunately he was intolerant to eat and therefore he was switched to beta sarika. However, just like cardizem, it did not last long before he developed resistance with beta-blockade. Overnight he was switched to amiodarone drip and this morning he seemed to have responded to this regimen. He is now hovering in the 120s and so beta sarika was added to his cardiac regimen. His hospital course was complicated by relative hypotension due to these cardiac medications. But he received adequate fluids for volume resuscitation and the patient appears to be clinically stable. We consulted cardiology from [facility]. We offered what the data warehouse specialist had recommended for further management but his family decided for lateral transfer. 2D echo was not performed because his heart rate was significantly elevated for it to be performed and out radiology wants its at or lower than 100. Patient will leave here via ambulance with cardiac capability once transportation arrives. He will be under the services of Dr. Monet, hospitalist attending. - Patient Instructions Diet: Heart Healthy Diet Activity: As Tolerated Driving: Do Not Drive Showering/Bathing: May Shower Other/Special Instructions: Transfer to [place] under the services of Dr. roth attending. - Discharge Plan *PRESCRIPTION DRUG MONITORING PROGRAM REVIEWED*: Not Applicable *COPY OF PRESCRIPTION DRUG MONITORING REPORT IN PATIENT DEEP: Not Applicable Home Medications: Home Meds Cholecalciferol (Vitamin D3) [Vitamin D3] 1 cap PO DAILY 12/02/17 [History] [place]-3/DHA/Epa/Fish Oil [[place]-3 EC Softgel] 1 each PO DAILY 12/02/17 [History] Red Yeast Rice 1 cap PO DAILY 12/02/17 [History] Scopolamine [Transderm-Scop] 1.5 mg TRDERM DAILY 12/02/17 [History] Referrals: Vipin Espinoza MD [Primary Care Provider] - - Discharge Summary/Plan Comment DC Time >30 min.: Yes (45 mind) Discharge Summary/Plan Comment: Transfer to [facility] - General Info Date of Service: 12/03/17 Admission Dx/Problem (Free Text: Admission Diagnosis/Problem Admission Diagnosis/Problem Atrial flutter Subjective Update: Follow Up Functional Status: Reports: Pain Controlled, Tolerating Diet, Ambulating, Urinating - Review of Systems General: Denies: Fever, Weakness, Fatigue, Malaise, Chills HEENT: Reports: No Symptoms Pulmonary: Denies: Shortness of Breath Cardiovascular: Denies: Chest Pain, Palpitations, Dyspnea on Exertion, Lightheadedness Gastrointestinal: Denies: Abdominal Pain, Decreased Appetite, Nausea, Vomiting Genitourinary: Reports: No Symptoms Musculoskeletal: Reports: No Symptoms Skin: Denies: Cyanosis, Mottled, Pallor, Diaphoresis, Rash Neurological: Denies: Confusion, Difficulty Walking, Weakness, Gait Disturbance Psychiatric: Denies: Depression, Anxiety, Agitation, Hallucinations - Patient Data Vitals - Most Recent: Last Vital Signs Temp 37.1 C 12/03/17 04:00 Pulse 124 H 12/03/17 12:00 Resp 16 12/03/17 08:00 BP 84/73 L 12/03/17 12:00 Pulse Ox 100 12/03/17 08:00 Weight - Most Recent: 93.44 kg I&O - Last 24 hours: Intake & Output 12/02/17 12/03/17 12/03/17 22:59 06:59 14:59 Intake Total 1629 300 Balance 1629 300 Lab Results - Last 24 hrs: Laboratory Results - last 24 hr 12/02/17 12/03/17 12/03/17 Range/Units 15:10 00:55 05:37 WBC 3.33 L (4.23-9.07) K/mm3 RBC 4.26 L (4.63-6.08) M/mm3 Hgb 13.1 L (13.7-17.5) gm/L Hct 40.3 (40.1-51.0) % MCV 94.6 H (79.0-92.2) fl MCH 30.8 (25.7-32.2) pg MCHC 32.5 (32.2-35.5) g/dl RDW Std Deviation 44.4 H (35.1-43.9) fL Plt Count 188 (163-337) K/mm3 MPV 10.2 (9.4-12.3) fl Neut % (Auto) 63.7 (34.0-67.9) % Lymph % (Auto) 26.1 (21.8-53.1) % [place] % (Auto) 8.4 (5.3-12.2) % Eos % (Auto) 1.5 (0.8-7.0) Baso % (Auto) 0.3 (0.1-1.2) % Neut # (Auto) 2.12 (1.78-5.38) K/mm3 Lymph # (Auto) 0.87 L (1.32-3.57) K/mm3 [place] # (Auto) 0.28 L (0.30-0.82) K/mm3 Eos # (Auto) 0.05 (0.04-0.54) K/mm3 Baso # (Auto) 0.01 (0.01-0.08) K/mm3 Sodium (136-145) mEq/L Potassium (3.5-5.1) mEq/L Chloride (98-107) mEq/L Carbon Dioxide (21-32) mEq/L Anion Gap (5-15) BUN (7-18) mg/dL Creatinine (0.7-1.3) mg/dL Est Cr Clr Drug Dosing mL/min Estimated GFR (MDRD) (>60) mL/min BUN/Creatinine Ratio (14-18) Glucose (80-115) mg/dL Calcium (8.5-10.1) mg/dL Magnesium (1.8-2.4) mg/dl Troponin I (0.00-0.056) ng/mL Free T4 0.79 (0.76-1.46) ng/dL TSH 3rd Generation 1.613 (0.358-3.74) uIU/mL Urine Opiates Screen Negative (NEGATIVE) Ur Buprenorphine Scrn Negative (NEGATIVE) Ur Oxycodone Screen Negative (NEGATIVE) Urine Methadone Screen Negative (NEGATIVE) Ur Propoxyphene Screen Negative (NEGATIVE) Ur Barbiturates Screen Negative (NEGATIVE) Ur Tricyclics Screen Negative (NEGATIVE) Ur Phencyclidine Scrn Negative (NEGATIVE) Ur Amphetamine Screen Negative (NEGATIVE) U Methamphetamines Scrn Negative (NEGATIVE) U Benzodiazepines Scrn Negative (NEGATIVE) U Cocaine Metab Screen Negative (NEGATIVE) U Marijuana (THC) Screen Negative (NEGATIVE) 12/03/17 Range/Units 05:37 WBC (4.23-9.07) K/mm3 RBC (4.63-6.08) M/mm3 Hgb (13.7-17.5) gm/L Hct (40.1-51.0) % MCV (79.0-92.2) fl MCH (25.7-32.2) pg MCHC (32.2-35.5) g/dl RDW Std Deviation (35.1-43.9) fL Plt Count (163-337) K/mm3 MPV (9.4-12.3) fl Neut % (Auto) (34.0-67.9) % Lymph % (Auto) (21.8-53.1) % [place] % (Auto) (5.3-12.2) % Eos % (Auto) (0.8-7.0) Baso % (Auto) (0.1-1.2) % Neut # (Auto) (1.78-5.38) K/mm3 Lymph # (Auto) (1.32-3.57) K/mm3 [place] # (Auto) (0.30-0.82) K/mm3 Eos # (Auto) (0.04-0.54) K/mm3 Baso # (Auto) (0.01-0.08) K/mm3 Sodium 142 (136-145) mEq/L Potassium 4.5 (3.5-5.1) mEq/L Chloride 109 H (98-107) mEq/L Carbon Dioxide 27 (21-32) mEq/L Anion Gap 10.5 (5-15) BUN 19 H (7-18) mg/dL Creatinine 1.2 (0.7-1.3) mg/dL Est Cr Clr Drug Dosing 70.06 mL/min Estimated GFR (MDRD) > 60 (>60) mL/min BUN/Creatinine Ratio 15.8 (14-18) Glucose 104 (80-115) mg/dL Calcium 7.9 L (8.5-10.1) mg/dL Magnesium 2.1 (1.8-2.4) mg/dl Troponin I < 0.017 (0.00-0.056) ng/mL Free T4 (0.76-1.46) ng/dL TSH 3rd Generation (0.358-3.74) uIU/mL Urine Opiates Screen (NEGATIVE) Ur Buprenorphine Scrn (NEGATIVE) Ur Oxycodone Screen (NEGATIVE) Urine Methadone Screen (NEGATIVE) Ur Propoxyphene Screen (NEGATIVE) Ur Barbiturates Screen (NEGATIVE) Ur Tricyclics Screen (NEGATIVE) Ur Phencyclidine Scrn (NEGATIVE) Ur Amphetamine Screen (NEGATIVE) U Methamphetamines Scrn (NEGATIVE) U Benzodiazepines Scrn (NEGATIVE) U Cocaine Metab Screen (NEGATIVE) U Marijuana (THC) Screen (NEGATIVE) Med Orders - Current: Current Medications Acetaminophen (Tylenol) 650 mg PO Q4H PRN PRN Reason: Pain (Mild 1-3)/fever Acetaminophen/Butalbital/Caffeine (Fioricet 325-50-40 Mg) 2 tab PO Q6H PRN PRN Reason: Headache Hydrocodone Bitart/Acetaminophen ([place] 325-5 Mg) 1 tab PO Q4H PRN PRN Reason: Pain (moderate 4-6) Albuterol/Ipratropium (Duoneb 3.0-0.5 Mg/3 Ml) 3 ml NEB Q4H PRN PRN Reason: Shortness Of Breath/wheezing Apixaban (Eliquis) 5 mg PO BID [facility] Last Admin: 12/03/17 09:58 Dose: 5 mg Bisacodyl (Dulcolax) 5 mg PO DAILY PRN PRN Reason: Constipation Calcium Carbonate/Glycine (Calcium Carbonate) 1,200 mg PO BIDMEALS [facility] Stop: 12/04/17 07:01 Cholecalciferol (Vitamin D3) 5,000 unit PO DAILY [facility] Last Admin: 12/03/17 10:05 Dose: Not Given Diltiazem HCl (Cardizem) 10 mg IVPUSH Q2H PRN PRN Reason: Tachycardia Docusate Sodium (Colace) 100 mg PO BID PRN PRN Reason: Constipation Fish Oil (Fish Oil) 1 gm PO DAILY [facility] Last Admin: 12/03/17 10:04 Dose: Not Given Hydromorphone HCl (Dilaudid) 0.25 mg IVPUSH Q2H PRN PRN Reason: Pain (severe 7-10) Diltiazem HCl 125 mg/ Sodium (Chloride) 125 mls @ 10 mls/hr IV TITRATE [facility]INDI; Protocol Last Titration: 12/03/17 03:11 Dose: 0 mg/hr, 0 mls/hr Sodium Chloride (Normal Saline) 1,000 mls @ 125 mls/hr IV ASDIRECTED [facility]INDI Last Infusion: 12/03/17 12:46 Dose: 999 mls/hr Promethazine HCl 12.5 mg/ (Sodium Chloride) 50.5 mls @ 100 mls/hr IV Q6H PRN PRN Reason: Nausea/Vomiting Amiodarone HCl/Dextrose (Nexterone In Dextrose 360 Mg/200 Ml) 360 mg in 200 mls @ 33.333 mls/hr IV ASDIRECTED MINDI; Protocol Last Admin: 12/03/17 03:49 Dose: 33.333 mls/hr Amiodarone HCl/Dextrose (Nexterone In Dextrose 360 Mg/200 Ml) 360 mg in 200 mls @ 16.7 mls/hr IV ASDIRECTED MINDI; Protocol Last Infusion: 12/03/17 13:00 Dose: 16.7 mls/hr Lorazepam (Ativan) 0.5 mg IV Q6H PRN PRN Reason: Anxiety Lorazepam (Ativan) 2 mg IVPUSH Q4H PRN PRN Reason: Seizures Magnesium Sulfate (Pharmacy To Dose - Magnesium Replacement) 1 dose .XX ASDIRECTED [facility] Metoprolol Tartrate (Lopressor) 5 mg IVPUSH Q2H PRN PRN Reason: Tachycardia Last Admin: 12/03/17 09:59 Dose: 5 mg Metoprolol Tartrate (Lopressor) 25 mg PO Q6H [facility] Miscellaneous Information (Remove Patch) 0 ea TRDERM Q72H [facility] Ondansetron HCl (Zofran) 4 mg IV Q6H PRN PRN Reason: Nausea/Vomiting Polyethylene Glycol (Miralax) 17 gm PO DAILY PRN PRN Reason: Constipation Potassium Chloride (Pharmacy To Dose - Potassium Replacement) 1 dose .XX ASDIRECTED [facility] Scopolamine (Transderm-Scop) 1.5 mg TRDERM Q72H [facility] Last Admin: 12/03/17 10:05 Dose: Not Given Senna/Docusate Sodium (Senna Plus) 1 tab PO BID PRN PRN Reason: Constipation Sodium Chloride (Saline Flush) 10 ml FLUSH ASDIRECTED PRN PRN Reason: Keep Vein Open Last Admin: 12/02/17 15:45 Dose: 10 ml Temazepam (Restoril) 7.5 mg PO BEDTIME PRN PRN Reason: Sleep Last Admin: 12/03/17 00:57 Dose: 7.5 mg Discontinued Medications Adenosine (Adenocard) 6 mg IVPUSH NOW ONE Stop: 12/03/17 12:05 Last Admin: 12/03/17 14:31 Dose: Not Given Adenosine (Adenocard) 12 mg IVPUSH NOW ONE Stop: 12/03/17 12:05 Last Admin: 12/03/17 14:31 Dose: Not Given Adenosine (Adenocard) 12 mg IVPUSH NOW ONE Stop: 12/03/17 12:06 Last Admin: 12/03/17 14:31 Dose: Not Given Calcium Carbonate/Glycine (Calcium Carbonate) 1,200 mg PO ONETIME ONE Stop: 12/03/17 09:31 Last Admin: 12/03/17 09:57 Dose: 1,200 mg Diltiazem HCl (Cardizem) 10 mg IVPUSH ONETIME ONE Stop: 12/02/17 15:21 Last Admin: 12/02/17 15:33 Dose: 10 mg Diltiazem HCl (Cardizem) 10 mg IVPUSH ONETIME ONE Stop: 12/02/17 23:24 Last Admin: 12/02/17 23:28 Dose: 10 mg Diltiazem HCl (Cardizem) Confirm Administered Dose 50 mg .ROUTE .STK-MED ONE Stop: 12/02/17 23:28 Last Admin: 12/03/17 03:46 Dose: Not Given Hydromorphone HCl (Dilaudid) 0.25 mg IVPUSH Q2H PRN PRN Reason: Pain (severe 7-10) Sodium Chloride (Normal Saline) 500 mls @ 1,000 mls/hr IV .BOLUS ONE Stop: 12/02/17 17:40 Last Admin: 12/02/17 17:13 Dose: 1,000 mls/hr Esmolol HCl (Brevibloc In Ns Premix) 2.5 gm in 250 mls @ 28.032 mls/hr IV TITRATE MINDI; Protocol Esmolol HCl (Esmolol Hcl In Sterile Water 2,500 Mg/250 Ml) 250 mls @ 28.032 mls /hr IV TITRATE MINDI; Protocol Last Titration: 12/03/17 02:37 Dose: 0 mcg/kg/min, 0 mls/hr Esmolol HCl (Esmolol Hcl In Sterile Water 2,500 Mg/250 Ml) Confirm Administered Dose 250 mls @ as directed .ROUTE .STK-MED ONE Stop: 12/02/17 22:59 Last Admin: 12/03/17 03:46 Dose: Not Given Amiodarone HCl/Dextrose (Nexterone In Dextrose 150 Mg/100 Ml) 100 mls @ 600 mls /hr IV .BOLUS ONE; Protocol Stop: 12/03/17 03:21 Last Admin: 12/03/17 03:38 Dose: 600 mls/hr Sodium Chloride (Normal Saline) 1,000 mls @ 999 mls/hr IV ONETIME ONE Stop: 12/03/17 13:25 Last Admin: 12/03/17 12:34 Dose: 999 mls/hr Metoprolol Tartrate (Lopressor) 5 mg IVPUSH ONETIME ONE Stop: 12/02/17 20:04 Last Admin: 12/02/17 20:03 Dose: 5 mg Metoprolol Tartrate (Lopressor) 25 mg PO Q12H [facility] Metoprolol Tartrate (Lopressor) 25 mg PO ONETIME ONE Stop: 12/02/17 20:30 Metoprolol Tartrate (Lopressor) 5 mg IVPUSH Q4H PRN PRN Reason: Tachycardia Metoprolol Tartrate (Lopressor) 25 mg PO ONETIME ONE Stop: 12/02/17 21:01 Last Admin: 12/02/17 21:29 Dose: 25 mg Metoprolol Tartrate (Lopressor) 50 mg PO Q12H [facility] Last Admin: 12/03/17 09:58 Dose: 50 mg Metoprolol Tartrate (Lopressor) Confirm Administered Dose 5 mg .ROUTE .STK-MED ONE Stop: 12/02/17 20:04 Last Admin: 12/03/17 03:47 Dose: Not Given Metoprolol Tartrate (Lopressor) Confirm Administered Dose 50 mg .ROUTE .STK-MED ONE Stop: 12/02/17 21:18 Last Admin: 12/03/17 03:47 Dose: Not Given Metoprolol Tartrate (Lopressor) Confirm Administered Dose 5 mg .ROUTE .STK-MED ONE Stop: 12/02/17 22:00 Last Admin: 12/03/17 03:47 Dose: Not Given Metoprolol Tartrate (Lopressor) Confirm Administered Dose 50 mg .ROUTE .STK-MED ONE Stop: 12/02/17 22:29 Last Admin: 12/03/17 03:47 Dose: Not Given Non-Formulary Medication (Red Yeast Rice [Red Yeast Rice]) 1 cap PO DAILY [facility] Temazepam (Restoril) Confirm Administered Dose 7.5 mg .ROUTE .STK-MED ONE Stop: 12/03/17 00:57 Last Admin: 12/03/17 03:46 Dose: Not Given - Exam General: Reports: Oriented, Cooperative, No Acute Distress. Denies: Alert HEENT: Reports: Pupils Equal, Pupils Reactive, EOMI, Mucous Membr. Moist/[place] Neck: Reports: Supple, Trachea Midline, No JVD, No Thyromegaly Lungs: Reports: Clear to Auscultation, Normal Respiratory Effort Cardiovascular: Reports: Irregular Rhythm, Tachycardia GI/Abdominal Exam: Normal Bowel Sounds, Soft, Non-Tender, No Organomegaly, No Distention, No Abnormal Bruit, No Mass (Male) Exam: Deferred Rectal (Males) Exam: Deferred Back Exam: Reports: Normal Inspection, Full Range of Motion Extremities: Normal Inspection, Normal Range of Motion, Non-Tender, No Pedal Edema, Normal Capillary Refill Skin: Reports: Warm, Dry, Intact Neurological: Reports: No New Focal Deficit, Normal Gait Psy/Mental Status: Reports: Alert, Normal Affect, Normal Mood
[2017-12-03] MEDS ORDERED: Metoprolol Tartrate 25 MG Tab PO SCH (15:00)
[2017-12-03] MEDS ORDERED: Calcium Carbonate 600 MG Tab PO SCH (17:00)
--- NOTE | 2017-12-06 09:44 | CR ---
Chest: Portable view of the chest was obtained. Comparsion: No prior chest x-ray. Heart size and mediastinum are normal. Lungs are clear. Bony structures are grossly intact. Impression: 1. Nothing acute is appreciated on two-view chest x-ray. Diagnostic code #1
== END 2017-12-03 16:37 | DRG 201 ==
LOC: JD.ED 15:13 → JD.ICU 19:31
PROVIDERS: ADMIT Internal Medicine; ATTEND Internal Medicine
DX: I48.92 Unspecified atrial flutter (principal); G47.33 Obstructive sleep apnea (adult) (pediatric); I47.1 Supraventricular tachycardia; I95.2 Hypotension due to drugs; T46.1X5A Adverse effect of calcium-channel blockers, initial encounter; Z79.899 Other long term (current) drug therapy
CPT/HCPCS: 36415; 71045; 71045-26; 80048; 80306; 83735; 84439; 84443; 84484; 85025; 93005; 93010; 96365; 96366; 96376; 99285-25; A9270-GY; J0282; J3490; J7030; J7040; J7050

== ENCOUNTER 2018-01-10 05:43 | Emergency (ER) | payer BC ==
--- NOTE | 2018-01-10 06:06 | EDM.PDOC ---
ED HPI GENERAL MEDICAL PROBLEM - General Chief Complaint: Cardiovascular Problem Stated Complaint: HEART ISSUES PREVIOUS PROBLEMS A MONTH AGO Time Seen by Provider: 01/10/18 06:03 Source of Information: Reports: Patient, Family History Limitations: Reports: No Limitations - History of Present Illness INITIAL COMMENTS - FREE TEXT/NARRATIVE: 62-year-old male presents the ED for evaluation of left precordial chest heaviness. Patient states he awoke around 11:30 last evening after sleeping for a couple of hours and felt a heaviness in his central and precordial left chest. No radiation of the discomfort. He did not feel his heart palpitating or skipping beats. He did get up and use the bathroom at that time. Measuring back to sleep until about 3:30 this morning when he got up to the bathroom. He did appreciate feeling somewhat lightheaded and had some precordial chest discomfort when she got up to the bathroom. Of note the patient was admitted to the hospital December 02 after a 2 to three-day history of palpitations dizziness lightheadedness and near syncopal events. Upon arrival here he was found to be in atrial flutter with rapid ventricular rate in the 140s. He was stabilized with intravenous diltiazem with rate control. Was admitted to our hospital for 2 days and then sent to [place] for cardiology consultation. Leobardo had a transthoracic echocardiogram which was unreliable due to too much lotion artifact. He then had a transesophageal esophageal echocardiogram which apparently did not reveal any clot within the atria. He therefore underwent cardioversion 1 dose which responded to.Since coming underwent cardioversion with return to normal sinus rhythm. He was on no medications other than over-the -counter preparations at time of admission to the hospital Currently he is on a lisinopril 2.5 mg once daily. He is on metoprolol 12.5 mg daily he is on amiodarone 100 mg daily atorvastatin I believe 20 mg once a day and Eliquis 5 mg twice a day. Also on a baby aspirin daily and Lasix 20 mg daily. He's had problems with dizziness lightheadedness and fatigue ever since starting medications. Apparently his medications were whittled down a little bit over the last two weeks due to being dizzy ,lightheaded and I believe bradycardic and somewhat hypotensive. He believes lisinopril is making him feel fairly ill and he has to take only right before bed to avoid side effects.. Denies cough or sputum production. Denies fever or chills. Denies really feeling short of breath. At this time I seen him he states he had barely any discomfort in his left precordial chest. ECG done by triage nurse reveals sinus bradycardia at 53/ m. There is a early R-wave transition suggesting right ventricular hypertrophy pattern. Also consider left atrial enlargement. QT interval was felt to be mildly prolonged at 460. Onset: Gradual Onset Date: 01/09/18 Onset Time: 23:30 (First noted discomfort that awoke him from sleep around 2330 hrs. last night.) Duration: Hour(s):, Heavy (Mild precordial chest heaviness.) Location: Reports: Chest (Left precordium with no radiation.) Quality: Reports: Ache (A mild ache or pressure discomfort.) Severity: Mild (Rates it as a 1 out of 10.) Improves with: Reports: None Worsens with: Reports: None Context: Denies: Activity, Exercise, Lifting, Sick Contact, Trauma, Other Associated Symptoms: Reports: Malaise (Particular fatigue since), Weakness ( Feels weak at times.). Denies: No Other Symptoms, Confusion, Chest Pain, Cough , cough w sputum, Diaphoresis, Fever/Chills, Headaches, Loss of Appetite, Nausea /Vomiting, Rash ( starting new medications.), Seizure, Shortness of Breath, Syncope Treatments COMB FIXER: Reports: Other (see below) Chest Pain Score (Numeric/FACES): 1 - Related Data Allergies Allergy/AdvReac Type Severity Reaction Status Date / Time No Known Allergies Allergy Verified 01/10/18 05:50 Home Meds: Home Meds Amiodarone [Cordarone] 100 mg PO DAILY 01/10/18 [History] Apixaban [Eliquis] 5 mg PO BID 01/10/18 [History] Aspirin 81 mg PO DAILY 01/10/18 [History] atorvaSTATin Calcium [Lipitor] 20 mg PO DAILY 01/10/18 [History] Past Medical History - Past Health History Medical/Surgical History: Denies Medical/Surgical History HEENT History: Reports: Impaired Vision Other HEENT History: Wears glasses Cardiovascular History: Reports: Arrhythmia Other Cardiovascular History: Atrial flutter Respiratory History: Reports: Sleep Apnea - Infectious Disease History Infectious Disease History: Reports: Shingles - Past Surgical History HEENT Surgical History: Reports: Tonsillectomy Cardiovascular Surgical History: Reports: Other (See Below) Other Cardiovascular Surgeries/Procedures: Cardioversion Musculoskeletal Surgical History: Reports: Arthroscopic Knee, Shoulder Surgery Social & Family History - Family History Family Medical History: Noncontributory - Tobacco Use Smoking Status *Q: Never Smoker - Caffeine Use Caffeine Use: Reports: Coffee - Recreational Drug Use Recreational Drug Use: No - Living Situation & Occupation Living situation: Reports: Occupation: Employed (Working part-time as an event management consultant.) ED ROS GENERAL - Review of Systems Review Of Systems: See Below Constitutional: Reports: Malaise, Weakness, Fatigue, Decreased Appetite. Denies : Fever, Chills HEENT: Reports: No Symptoms Respiratory: Denies: Shortness of Breath, Wheezing, Pleuritic Chest Pain, Cough , Sputum, Hemoptysis Cardiovascular: Reports: Chest Pain, Lightheadedness, Palpitations (History of developing atrial fibrillation with rapid ventricular rate on November 30. Admit to hospital December 02 because of this problem newly identified. Subsequently has undergone cardio version with return to sinus rhythm.). Denies: Blood Pressure Problem, Claudication, Dyspnea on Exertion, Edema (Occasional.), Orthopnea Endocrine: Reports: Fatigue GI/Abdominal: Reports: No Symptoms : Reports: Frequency Musculoskeletal: Reports: No Symptoms (Noted this more since starting Lasix 20 mg a day.) Skin: Reports: Bruising Neurological: Reports: No Symptoms Psychiatric: Reports: No Symptoms ED EXAM, GENERAL - Physical Exam Exam: See Below Exam Limited By: No Limitations General Appearance: Alert, WD/WN, Anxious (Mild to moderate anxiety. He is frustrated about being ill and need of medications. Of note he was on no medications up until December 02.) Eye Exam: Bilateral Eye: Normal Inspection Respiratory/Chest: No Respiratory Distress, Lungs Clear, Normal Breath Sounds, No Accessory Muscle Use, Chest Non-Tender Cardiovascular: Normal Peripheral Pulses, No Edema, No Gallop, No Murmur, Bradycardia (55/m on my examination.) Peripheral Pulses: 2+: Posterior Tibial (L), Posterior Tibial (R), Dorsalis Pedis (L), Dorsalis Pedis (R) GI/Abdominal: Normal Bowel Sounds, Non-Tender, No Organomegaly, No Abnormal Bruit, No Mass, Pelvis Stable, Other Back Exam: Normal Inspection, Full Range of Motion. No: CVA Tenderness (L), CVA Tenderness (R) Extremities: Normal Inspection, Normal Range of Motion, Non-Tender, No Pedal Edema Neurological: Alert, Oriented, CN II-XII Intact, Normal Cognition, Normal Gait, No Motor/Sensory Deficits Psychiatric: Normal Affect, Anxious Skin Exam: Warm, Dry (Mildly anxious and frustrated.), Intact, Normal Color, No Rash EKG INTERPRETATION EKG Date: 01/10/18 Time: 05:51 Rhythm: Other (Sinus bradycardia) Rate (Beats/Min): 53 [place]: RAD-Right [place] Deviation P-Wave: Enlarged (Borderline right axis deviation with an axis of 85. He does have an enlarged P-wave in lead 2. Consider left atrial enlargement.) QRS: Other (Patient has early R-wave transition in V2 V3 suggesting right ventricular hypertrophy versus septal hypertrophy pattern.) ST-T: Normal QT: Prolonged EKG Interpretation Comments: Abnormal ECG Course - Vital Signs Last Recorded V/S: Last Vital Signs Temp 35.5 C 01/10/18 05:50 Pulse 59 L 01/10/18 05:50 Resp 13 01/10/18 05:50 BP 124/76 01/10/18 05:50 Pulse Ox 100 01/10/18 05:50 - Orders/Labs/Meds Orders: Active Orders 24 hr Category Date Time Status EKG 12 Lead [EKG Documentation Completion] [RC] STAT Care 01/10/18 05:57 Active EKG Documentation Completion [RC] STAT Care 01/10/18 06:05 Active Chest 1V Frontal [CR] Stat Exams 01/10/18 06:05 Taken PRO B-TYPE NATRIUR PEPT,BNPPRO [CHEM] Stat Lab 01/10/18 06:06 Received Sodium Chloride 0.9% [Normal Saline] 1,000 ml Med 01/10/18 06:15 Active IV ASDIRECTED Medication Orders Sodium Chloride (Normal Saline) 1,000 mls @ 125 mls/hr IV ASDIRECTED MINDI Last Admin: 01/10/18 06:12 Dose: 125 mls/hr Labs: Laboratory Tests 01/10/18 01/10/18 01/10/18 Range/Units 06:06 06:06 06:06 WBC 4.87 (4.23-9.07) K/mm3 RBC 4.58 L (4.63-6.08) M/mm3 Hgb 14.4 (13.7-17.5) gm/L Hct 42.6 (40.1-51.0) % MCV 93.0 H (79.0-92.2) fl MCH 31.4 (25.7-32.2) pg MCHC 33.8 (32.2-35.5) g/dl RDW Std Deviation 42.1 (35.1-43.9) fL Plt Count 193 (163-337) K/mm3 MPV 9.7 (9.4-12.3) fl Neutrophils % (Manual) 49 (40-60) % Band Neutrophils % 0 (0-10) % Lymphocytes % (Manual) 41 H (20-40) % Atypical Lymphs % 0 % Monocytes % (Manual) 8 (2-10) % Eosinophils % (Manual) 2 (0.8-7.0) % Basophils % (Manual) 0 L (0.2-1.2) Platelet Estimate Adequate RBC Morph Comment Normal D-Dimer, Quantitative < 0.19 L (0.19-0.50) mg/L Sodium 141 (136-145) mEq/L Potassium 4.0 (3.5-5.1) mEq/L Chloride 105 (98-107) mEq/L Carbon Dioxide 30 (21-32) mEq/L Anion Gap 10.0 (5-15) BUN 18 (7-18) mg/dL Creatinine 1.3 (0.7-1.3) mg/dL Est Cr Clr Drug Dosing 63.84 mL/min Estimated GFR (MDRD) 56 (>60) mL/min BUN/Creatinine Ratio 13.8 L (14-18) Glucose 101 (80-115) mg/dL Calcium 8.7 (8.5-10.1) mg/dL Magnesium 2.4 (1.8-2.4) mg/dl Total Bilirubin 0.5 (0.2-1.0) mg/dL AST 22 (15-37) U/L ALT 40 (16-63) U/L Alkaline Phosphatase 64 (46-116) U/L CK-MB (CK-2) < 0.5 (0-3.6) ng/ml Troponin I < 0.017 (0.00-0.056) ng/mL Total Protein 7.3 (6.4-8.2) g/dl Albumin 3.8 (3.4-5.0) g/dl Globulin 3.5 gm/dL Albumin/Globulin Ratio 1.1 (1-2) Meds: Medications Generic Name Dose Route Start Last Admin Trade Name Mar PRN Reason Stop Dose Admin Sodium Chloride 1,000 mls @ 125 mls/hr 01/10/18 06:15 01/10/18 06:12 Normal Saline IV 125 mls/hr [facility] Administration - Re-Assessments/Exams Free Text/Narrative Re-Assessment/Exam: 01/10/18 06:38 Patient states he has very little precordial discomfort at this time. Her pressure is low at 93/70. 10 minutes ago was 103 systolic. Her main bradycardic at 50-55/m. It therefore appears that he is suffering side effects of medication with too much bradycardia and development of hypotension from medication. Departure - Departure Time of Disposition: 07:14 Disposition: Home, Self-Care 01 Condition: Fair Clinical Impression: Nonspecific chest pain, Bradycardia with 51-60 beats per minute, Hypotension due to drugs Adverse effects of medication Qualifiers: Encounter type: initial encounter Qualified Code(s): T50.905A - Adverse effect of unspecified drugs, medicaments and biological substances, initial encounter Instructions: Hypotension, [id number], Bradycardia, Adult, Nonspecific Chest Pain Referrals: Vipin Espinoza MD [Primary Care Provider] - Forms: ED Department Discharge Additional Instructions: Evaluation the emergency room this morning in regards to development of left precordial chest discomfort late last night and noting lightheaded dizziness is comfort in the left precordial of the chest this morning as well. Examination reveals her blood pressure was too low with it staying around 93-94 on the top number which is far too low for you. It needs to be around 110-120. This is felt to be secondary to adverse effects of medication. Second problem identified was heart rate being too low, averaging around 53-54/m. This is also an adverse effect of medication being started because of rapid heart rate from atrial flutter on 02 December. You are back in regular sinus rhythm. Labs revealed no sign of heart attack or change in cardiac enzymes. No sign of blood clot in the lung. No sign of heart failure. I did discuss findings with Dr. Msoes your mountain services manager in [place] and he is in agreement with need to reduce medications to curtail the side effects that you are experiencing. Decision made to leave you on the amiodarone 100 mg per day. Discontinue the metoprolol. Discontinue lisinopril. Discontinue Lasix 20 mg daily. You should start to feel improved in about 3-4 days time as the metoprolol levels will drop in your bloodstream. They will not be completely out of your system for a week. Similarily the Lisinopril will not be out of your system completely for a week. The effects of Lasix will be gone by tomorrow. Follow-up with Dr. Moses as planned later this month for repeat echocardiogram and perhaps further medication changes. - My Orders Last 24 Hours: My Active Orders 01/10/18 05:57 EKG 12 Lead [EKG Documentation Completion] [RC] STAT 01/10/18 06:05 EKG Documentation Completion [RC] STAT Chest 1V Frontal [CR] Stat 01/10/18 06:06 PRO B-TYPE NATRIUR PEPT,BNPPRO [CHEM] Stat 01/10/18 06:15 Sodium Chloride 0.9% [Normal Saline] 1,000 ml IV ASDIRECTED - Assessment/Plan Last 24 Hours: My Active Orders 01/10/18 05:57 EKG 12 Lead [EKG Documentation Completion] [RC] STAT 01/10/18 06:05 EKG Documentation Completion [RC] STAT Chest 1V Frontal [CR] Stat 01/10/18 06:06 PRO B-TYPE NATRIUR PEPT,BNPPRO [CHEM] Stat 01/10/18 06:15 Sodium Chloride 0.9% [Normal Saline] 1,000 ml IV ASDIRECTED
[2018-01-10] MEDS ORDERED: Sodium Chloride 0.9% 1,000 ML IV SCH (06:15)
--- NOTE | 2018-01-10 11:47 | CR ---
Chest: Portable view of the chest was obtained. Comparison: Previous chest x-ray of 12/02/17. Heart size and mediastinum are normal. Lungs are clear. Bony structures are unremarkable. Impression: 1. Nothing acute is seen on portable chest x-ray. Diagnostic code #1
== END 2018-01-10 07:30 | disposition home or self-care (01) ==
LOC: JD.ED 05:43
DX: R07.2 Precordial pain (principal); R00.1 Bradycardia, unspecified; I95.2 Hypotension due to drugs; T46.4X5A Adverse effect of angiotensin-converting-enzyme inhibitors, initial encounter; Z79.899 Other long term (current) drug therapy; Z79.82 Long term (current) use of aspirin
CPT/HCPCS: 36415; 71045; 80053; 82553; 83735; 83880; 84484; 85007; 85027; 85379; 93005; 96360; 99285; J7040; 93010; 99284-25

== ENCOUNTER → 2019-04-20 | Day surgery (SDC) | payer BC ==
[~2019-04-20] MED LIST changes: +Bupivacaine 0.25% 10 ML SDV ONE; +Lactated Ringers 1,000 ML IV SCH; +Lidocaine 1% 30 ML SDV ONE; +Lidocaine 1% 6 ML ONE; +Lidocaine 1%/Sod Bicarbonate in NS 8.4% 1 ML Syringe IDERM PRN; -Metoprolol Tartrate 25 MG Tab PO SCH; +Ondansetron 4 MG/2 ML SDV ONE; +Propofol 200 MG/20 ML SDV ONE; +Sodium Chloride 0.9% 10 ML Syringe FLUSH PRN; +fentaNYL 100 MCG/2 ML SDV ONE
--- NOTE | 2019-04-20 06:37 | PCM.PREANE ---
Preanesthetic Assessment - Anesthesia/Transfusion/Family Hx Anesthesia History: Prior Anesthesia Without Reaction Family History of Anesthesia Reaction: No Transfusion History: No Prior Transfusion(s) Intubation History: Unknown - Review of Systems General: No Symptoms Pulmonary: No Symptoms (JONATHAN-CPAP at night) Cardiovascular: No Symptoms ((2019)History of Atrial Flutter-ablation noted, currently in NSR. History of Acute CHF with the epidsode of atrial flutter with RVR, no longer has any symptoms./ History of cardiomyopathy with EF returned back to normal since resolution of atrial flutter./CAD- [place] 1997 neurogenic stunninig(cardiac catheterization)) Gastrointestinal: No Symptoms Neurological: No Symptoms (Lower back pain chronic rated at a 2/10.), Syncope ( 2018 atrial flutter) Other: Reports: None, Neck Pain - Physical Assessment NPO Status Date: 04/19/19 NPO Status Time: 18:00 Vital Signs: HR:59 Sat:95% Resp:16 Temp:97 BP:117/70 Height: 1.83 m Weight: 95 kg ASA Class: 2 Mental Status: Alert & Oriented x3 Airway Class: Mallampati = 2 Dentition: Reports: Normal Dentition, Renfrow(s), Caries Thyro-Mental Finger Breadths: 3 Mouth Opening Finger Breadths: 3 ROM/Head Extension: Full Lungs: Clear to Auscultation, Normal Respiratory Effort Cardiovascular: Regular Rate, Regular Rhythm, No Murmurs - Lab Values: Laboratory Last Values MRSA (PCR) Negative 04/14/19 13:49 All labs reviewed and noted and within acceptable ranges to proceed with scheduled procedure. - Imaging/EKG Impressions: CXR: negative EKG: SR rate=60 - Allergies Allergies/Adverse Reactions: Allergies Allergy/AdvReac Type Severity Reaction Status Date / Time No Known Allergies Allergy Verified 04/19/19 17:02 - Anesthesia Plan Pre-Op Medication Ordered: None - Acknowledgements Anesthesia Type Planned: MAC Pt an Appropriate Candidate for the Planned Anesthesia: Yes Alternatives and Risks of Anesthesia Discussed w Pt/Guardian: Yes Pt/Guardian Understands and Agrees with Anesthesia Plan: Yes PreAnesthesia Questionnaire - Past Health History Medical/Surgical History: Denies Medical/Surgical History HEENT History: Reports: Impaired Vision Other HEENT History: Wears glasses Cardiovascular History: Reports: Arrhythmia, Cardiomyopathy, Heart Failure Other Cardiovascular History: Atrial flutter, congenital coronary artery anomaly Respiratory History: Reports: Sleep Apnea Gastrointestinal History: Reports: None Genitourinary History: Reports: Other (See Below) Other Genitourinary History: proteinuria DROP WIRE ALIGNER History: Reports: None Other Musculoskeletal History: tennis elbow surgery, left knee arthroscopy, right knee arhtroscopy x 2, bilateral shoulder surgeries Neurological History: Reports: Other (See Below) Other Neuro History: syncope Psychiatric History: Reports: None Endocrine/Metabolic History: Reports: None Hematologic History: Reports: None Immunologic History: Reports: None Oncologic (Cancer) History: Reports: None Dermatologic History: Reports: None - Infectious Disease History Infectious Disease History: Reports: Shingles - Past Surgical History Head Surgeries/Procedures: Reports: None HEENT Surgical History: Reports: Tonsillectomy Cardiovascular Surgical History: Reports: Cardiac Ablation, Other (See Below) Other Cardiovascular Surgeries/Procedures: Cardioversion Respiratory Surgical History: Reports: None GI Surgical History: Reports: None Female Surgical History: Reports: None Male Surgical History: Reports: None Endocrine Surgical History: Reports: None Neurological Surgical History: Reports: None Musculoskeletal Surgical History: Reports: Arthroscopic Knee, Shoulder Surgery Oncologic Surgical History: Reports: None Dermatological Surgical History: Reports: None - SUBSTANCE USE Smoking Status *Q: Never Smoker Recreational Drug Use History: No - HOME MEDS Home Medications: Home Meds Cholecalciferol (Vitamin D3) [Vitamin D3] 5,000 unit PO DAILY 04/19/19 [History] Docusate Sodium [Colace] 100 mg PO DAILY PRN 04/19/19 [History] Nitroglycerin [Nitrostat] 0.4 mg SL ASDIRECTED PRN 04/19/19 [History] Red Yeast Rice 600 mg PO DAILY 04/19/19 [History] - CURRENT (IN HOUSE) MEDS Current Meds: Current Medications Lactated Ringer's (Ringers, Lactated) 1,000 mls @ 125 mls/hr IV ASDIRECTED MINDI Stop: 04/20/19 23:00 Lidocaine/Sodium Bicarbonate (Buffered Lidocaine 1% In Ns 8.4%) 0.25 ml IDERM ONETIME PRN PRN Reason: Prior to IV Start Stop: 04/20/19 18:00 Sodium Chloride (Saline Flush) 10 ml FLUSH ASDIRECTED PRN PRN Reason: Keep Vein Open Stop: 04/20/19 18:00 Discontinued Medications Fentanyl (Sublimaze) Confirm Administered Dose 200 mcg .ROUTE .STK-MED ONE Stop: 04/20/19 06:10 Lidocaine HCl (Xylocaine-Mpf 1%) Confirm Administered Dose 6 mls @ as directed .ROUTE .STK-MED ONE Stop: 04/20/19 06:09 Ondansetron HCl (Zofran) Confirm Administered Dose 4 mg .ROUTE .STK-MED ONE Stop: 04/20/19 06:09 Propofol (Diprivan 20 Ml) Confirm Administered Dose 200 mg .ROUTE .STK-MED ONE Stop: 04/20/19 06:10
--- NOTE | 2019-04-20 07:55 | PCM48HPAN ---
Post Anesthesia Note - EVALUATION WITHIN 48HRS OF ANESTHETIC Vital Signs in Normal Range: Yes Patient Participated in Evaluation: Yes Respiratory Function Stable: Yes Airway Patent: Yes Cardiovascular Function Stable: Yes Hydration Status Stable: Yes Pain Control Satisfactory: Yes Nausea and Vomiting Control Satisfactory: Yes Mental Status Recovered: Yes Vital Signs: Last Vital Signs Temp 97.4 04/20/19 07:49 Pulse 63 04/20/19 07:49 Resp 8 04/20/19 07:49 BP 92/55 04/20/19 07:49 Pulse Ox 93% 04/20/19 07:49
--- NOTE | 2019-04-23 16:10 | PCM.OPNOTE ---
- General Post-Op/Procedure Note Date of Surgery/Procedure: 04/20/19 Operative Procedure(s): right middle finger a1 vaishnavi release Pre Op Diagnosis: right middle finger stenosing tenosynovitis Post-Op Diagnosis: Same Anesthesia Technique: Local, MAC Primary Surgeon: Rober Tapia Anesthesia Provider: Adriana Simeon Wood Type Cutter: Deisy Mcduffie EBNyasia in mLs: 5 Complications: None Condition: Good
--- NOTE | 2019-04-23 16:34 | OR ---
DATE OF OPERATION: 04/20/2019 SURGEON: Rober Tapia MD OPERATION PERFORMED: Right middle finger A1 vaishnavi release. PREOPERATIVE DIAGNOSIS: Right middle finger stenosing tenosynovitis. POSTOPERATIVE DIAGNOSIS: Right middle finger stenosing tenosynovitis. ANESTHESIA: Local MAC. ANESTHESIA PROVIDER: Adriana Simeon CRNA MARKETING AUTOMATION SPECIALIST: Deisy Mcduffie PA-C ESTIMATED BLOOD LOSS: Less than 5 mL. COMPLICATIONS: None. CONDITION: Stable. DESCRIPTION OF PROCEDURE: The patient was identified in the preoperative holding area. Proper site was marked and identified by the surgeon. The patient was taken back to the operating theater, where after adequate anesthesia, the patient's right upper extremity was sterilely prepped and draped in the usual sterile fashion. OR- wide time-out was performed. The patient did not receive antibiotic as it was not indicated for soft tissue hand procedure at this time. 1% lidocaine without epinephrine and 0.25% Marcaine without epinephrine were used to anesthetize the incisional site over the A1 vaishnavi. A transverse incision was made. Blunt dissection was taken down to the A1 vaishnavi region. [place] blade was then used to resect the A1 vaishnavi both proximally and distally. The tendon was identified and showed no signs of adhesions. At this time, adequate saline was irrigated through the wound. 4-0 nylon suture was used for closure of the skin. The patient tolerated the procedure well and was sent to PACU in stable condition. KILEY /[id number]
== END | disposition home or self-care (01) ==
LOC: JD.SDS 06:07
PROVIDERS: ATTEND Orthopaedic Surgery
DX: M65.331 Trigger finger, right middle finger (principal); I50.21 Acute systolic (congestive) heart failure; I42.9 Cardiomyopathy, unspecified; G47.33 Obstructive sleep apnea (adult) (pediatric); I48.92 Unspecified atrial flutter; Q24.5 Malformation of coronary vessels; I25.10 Atherosclerotic heart disease of native coronary artery without angina pectoris; I25.2 Old myocardial infarction; G89.29 Other chronic pain; M54.5 Low back pain; Z79.82 Long term (current) use of aspirin; Z79.01 Long term (current) use of anticoagulants; Z79.899 Other long term (current) drug therapy; Z88.8 Allergy status to other drugs, medicaments and biological substances; Z99.89 Dependence on other enabling machines and devices; Z98.890 Other specified postprocedural states; Z98.61 Coronary angioplasty status
CPT/HCPCS: 26055; 87641; J2001; J2405; J2704; J3010; J3490; J7120; 01810

== ENCOUNTER 2020-02-22 06:32 | Day surgery (SDC) | payer MEDICARE, BC ==
[~2020-02-22 06:32] MED LIST changes: -Bupivacaine 0.25% 10 ML SDV ONE; -Lidocaine 1% 30 ML SDV ONE; -Lidocaine 1% 6 ML ONE; -Ondansetron 4 MG/2 ML SDV ONE; -Propofol 200 MG/20 ML SDV ONE; -fentaNYL 100 MCG/2 ML SDV ONE
[2020-02-22] MEDS ORDERED: Bupivacaine 0.25% 10 ML SDV ONE (06:40)
[2020-02-22] MEDS ORDERED: Lidocaine 1% 30 ML SDV ONE (06:40)
--- NOTE | 2020-02-22 06:57 | PCM.PREANE ---
Preanesthetic Assessment - Anesthesia/Transfusion/Family Hx Anesthesia History: Prior Anesthesia Without Reaction Family History of Anesthesia Reaction: No Transfusion History: No Prior Transfusion(s) Intubation History: Unknown - Review of Systems General: No Symptoms Pulmonary: No Symptoms Cardiovascular: No Symptoms Gastrointestinal: No Symptoms Neurological: No Symptoms Other: Reports: None - Physical Assessment NPO Status Date: 02/21/20 NPO Status Time: 00:00 Height: 1.83 m Weight: 91.172 kg ASA Class: 2 Mental Status: Alert & Oriented x3 Airway Class: Mallampati = 1 Dentition: Reports: Normal Dentition, Implants (right) Thyro-Mental Finger Breadths: 3 Mouth Opening Finger Breadths: 3 ROM/Head Extension: Full Cardiovascular: Regular Rate, Regular Rhythm - Lab Values: Laboratory Last Values MRSA (PCR) Negative 02/16/20 12:50 - Allergies Allergies/Adverse Reactions: Allergies Allergy/AdvReac Type Severity Reaction Status Date / Time No Known Allergies Allergy Verified 02/21/20 15:00 - Blood Blood Available: No Product(s) Available: None - Anesthesia Plan Pre-Op Medication Ordered: None - Acknowledgements Anesthesia Type Planned: MAC Pt an Appropriate Candidate for the Planned Anesthesia: Yes Alternatives and Risks of Anesthesia Discussed w Pt/Guardian: Yes Pt/Guardian Understands and Agrees with Anesthesia Plan: Yes PreAnesthesia Questionnaire - Past Health History Medical/Surgical History: Denies Medical/Surgical History HEENT History: Reports: Impaired Vision Other HEENT History: Wears glasses Cardiovascular History: Reports: Arrhythmia, CAD, Cardiomyopathy, Heart Failure, [place] Other Cardiovascular History: Atrial flutter, congenital coronary artery anomaly, ichemic heart disease, acute systolic congestive heart failure, arrhythmia, heart cath Respiratory History: Reports: Sleep Apnea Gastrointestinal History: Reports: None Genitourinary History: Reports: Other (See Below) Other Genitourinary History: proteinuria, frequency 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 Other Musculoskeletal History: tennis elbow surgery, left knee arthroscopy, right knee arhtroscopy x 2, bilateral shoulder surgeries Neurological History: Reports: Other (See Below) Other Neuro History: syncope, fatigue Psychiatric History: Reports: None Endocrine/Metabolic History: Reports: None Hematologic History: Reports: None Immunologic History: Reports: None Oncologic (Cancer) History: Reports: None Dermatologic History: Reports: Other (See Below) Other Dermatologic History: skin lesions - Infectious Disease History Infectious Disease History: Reports: None - Past Surgical History Head Surgeries/Procedures: Reports: None HEENT Surgical History: Reports: Tonsillectomy Cardiovascular Surgical History: Reports: Cardiac Ablation, Other (See Below) Other Cardiovascular Surgeries/Procedures: Cardioversion Respiratory Surgical History: Reports: None GI Surgical History: Reports: Colonoscopy Female Surgical History: Reports: None Male Surgical History: Reports: None Endocrine Surgical History: Reports: None Neurological Surgical History: Reports: None Musculoskeletal Surgical History: Reports: Arthroscopic Knee, Carpal Tunnel, Shoulder Surgery Other Musculoskeletal Surgeries/Procedures:: tennis elbow surgery, bilateral knee arthroscopies, bilateral shoulder surgeries Oncologic Surgical History: Reports: None Dermatological Surgical History: Reports: None - SUBSTANCE USE Tobacco Use Status *Q: Never Tobacco User Tobacco Use Within Last Twelve Months: No Second Hand Smoke Exposure: No Days Per Week of Alcohol Use: 0 Number of Drinks Per Day: 0 Total Drinks Per Week: 0 Recreational Drug Use History: No - HOME MEDS Home Medications: Home Meds Cholecalciferol (Vitamin D3) [Vitamin D3] 5,000 unit PO DAILY 04/19/19 [History] Red Yeast Rice 600 mg PO DAILY 04/19/19 [History] Fish Oil/[place]-3 Fatty Acids [Fish Oil 1,000 MG] 1 gm PO DAILY 02/21/20 [History] Scopolamine [Transderm-Scop] 1 patch TOP ASDIRECTED PRN 02/21/20 [History] traMADol [Ultram] 50 - 100 mg PO Q6H PRN #10 tab 02/22/20 [Rx] - CURRENT (IN HOUSE) MEDS Current Meds: Current Medications Lactated Ringer's (Ringers, Lactated) 1,000 mls @ 125 mls/hr IV ASDIRECTED MINDI Stop: 02/22/20 23:00 Lidocaine/Sodium Bicarbonate (Buffered Lidocaine 1% In Ns 8.4%) 0.25 ml IDERM ONETIME PRN PRN Reason: Prior to IV Start Stop: 02/22/20 18:00 Sodium Chloride (Saline Flush) 10 ml FLUSH ASDIRECTED PRN PRN Reason: Keep Vein Open Stop: 02/22/20 18:00 Discontinued Medications Bupivacaine HCl (Sensorcaine-Mpf 0.25%) Confirm Administered Dose 10 ml .ROUTE .STK-MED ONE Stop: 11/12/20 06:41 Lidocaine HCl (Xylocaine-Mpf 1%) Confirm Administered Dose 30 ml .ROUTE .[facility] Stop: 02/22/20 06:41
[2020-02-22] MEDS ORDERED: Propofol 200 MG/20 ML SDV ONE (07:01)
[2020-02-22] MEDS ORDERED: Midazolam 1 MG/ML 2 ML SDV ONE (07:02)
[2020-02-22] MEDS ORDERED: fentaNYL 100 MCG/2 ML SDV ONE (07:02)
[2020-02-22] MEDS ORDERED: Lidocaine 1% 4 ML ONE (07:02)
--- NOTE | 2020-02-22 09:21 | PCM48HPAN ---
Post Anesthesia Note - EVALUATION WITHIN 48HRS OF ANESTHETIC Vital Signs in Normal Range: Yes Patient Participated in Evaluation: Yes Respiratory Function Stable: Yes Airway Patent: Yes Cardiovascular Function Stable: Yes Hydration Status Stable: Yes Pain Control Satisfactory: Yes Nausea and Vomiting Control Satisfactory: Yes Mental Status Recovered: Yes Vital Signs: Last Vital Signs Temp 36.1 C 02/22/20 07:43 Pulse 51 L 02/22/20 08:45 Resp 16 02/22/20 08:45 BP 112/74 02/22/20 08:45 Pulse Ox 96 02/22/20 08:45
--- NOTE | 2020-03-06 15:50 | PCM.OPNOTE ---
- General Post-Op/Procedure Note Date of Surgery/Procedure: 02/22/20 Operative Procedure(s): right ring and small finger a1 vaishnavi releases Pre Op Diagnosis: right ring and small finger stenosing tenosynovitis Post-Op Diagnosis: Same Anesthesia Technique: Local, MAC Primary Surgeon: Rober Tapia Anesthesia Provider: Kristian Serra Professor Of Architecture: Deisy Mcduffie EBL in mLs: 5 Complications: None Condition: Good
--- NOTE | 2020-03-06 16:52 | OR ---
DATE OF OPERATION: 02/22/2020 SURGEON: Rober Tapia MD OPERATION PERFORMED: Right ring finger and small finger A1 vaishnavi releases. PREOPERATIVE DIAGNOSIS: Right ring and small finger stenosing tenosynovitis. POSTOPERATIVE DIAGNOSIS: Right ring and small finger stenosing tenosynovitis. ANESTHESIA: Local MAC. ANESTHESIA PROVIDER: Kristian Serra CRNA CLINIC OFFICE COORDINATOR: Deisy Mcduffie PA-C ESTIMATED BLOOD LOSS: Less than 5 mL. COMPLICATIONS: None. CONDITION: Stable. DESCRIPTION OF PROCEDURE: The patient was identified in the preoperative holding area where proper site was marked and identified by the surgeon. The patient was taken back to the operating theater where after adequate anesthesia, the patient's right upper extremity was sterilely prepped and draped in the usual sterile fashion. OR time-out was performed. The patient received 2 g IV Ancef at this time. 1% lidocaine without epinephrine and 0.25% Marcaine without epinephrine were used to anesthetize over the incisional area over the A1 vaishnavi of the small and ring finger of the right hand. Transverse incisions were made on the hands of both. [place] retractors were placed down first to the ring finger protecting the neurovascular bundles and a [place] blade was used to resect the A1 vaishnavi both proximally and distally. The tendon was brought up through the wound bed and was found to have no tendinous adhesions. At this time, attention was turned to the small finger. Again, Ragnell retractors were placed. [place] blade was used to resect the A1 vaishnavi both proximally and distally. The tendon was brought through the wound bed and found to have no tendinous adhesions. Adequate saline was irrigated through both incisions and 4-0 nylon suture was used for closure of the skin. The patient tolerated the procedure well and was sent to PACU in stable condition. MMODAL /[id number]
== END 2020-02-22 09:04 | disposition home or self-care (01) ==
LOC: JD.SDS 06:32
PROVIDERS: ATTEND Orthopaedic Surgery
DX: M65.841 Other synovitis and tenosynovitis, right hand (principal); G47.33 Obstructive sleep apnea (adult) (pediatric); I48.3 Typical atrial flutter; I50.21 Acute systolic (congestive) heart failure; I25.10 Atherosclerotic heart disease of native coronary artery without angina pectoris; I25.2 Old myocardial infarction; Z98.890 Other specified postprocedural states; Z88.8 Allergy status to other drugs, medicaments and biological substances
CPT/HCPCS: 26055; 87641; J2001; J2250; J2704; J3010; J3490; J7120; 01810

== ENCOUNTER 2021-03-31 09:40 | Day surgery (SDC) | payer MEDICARE, BC ==
--- NOTE | 2021-03-31 08:49 | PCM.PREANE ---
Preanesthetic Assessment - Procedure Proposed Procedure: Right index finger A1 vaishnavi release with intra-incisional steroid injection and left third, fourth, and fifth finger steroid injection - Anesthesia/Transfusion/Family Hx Anesthesia History: Prior Anesthesia Without Reaction Family History of Anesthesia Reaction: No Transfusion History: No Prior Transfusion(s) Intubation History: Unknown - Review of Systems General: No Symptoms Pulmonary: No Symptoms Cardiovascular: No Symptoms Gastrointestinal: No Symptoms Neurological: Tingling (right fingers) Other: Reports: None - Physical Assessment NPO Status Date: 03/30/21 NPO Status Time: 19:00 Vital Signs: 121/78 HR 59 RR 16 99% 97.0 Height: 1.8 m Weight: 95 kg ASA Class: 2 Mental Status: Alert & Oriented x3 Airway Class: Mallampati = 3 Dentition: Reports: [place](s), Implants, [place] Thyro-Mental Finger Breadths: 2 Mouth Opening Finger Breadths: 2 Lungs: Clear to Auscultation, Normal Respiratory Effort Cardiovascular: Regular Rate, Regular Rhythm, No Murmurs - Lab Values: Labs reviewed and okay to proceed - Imaging/EKG Impressions: HX of Aflutter with RVR, had ECHO following and showed return to normal cardiac function, EF 60-65%, has been in NSR since cardioversion and then ablation - Allergies Allergies/Adverse Reactions: Allergies Allergy/AdvReac Type Severity Reaction Status Date / Time No Known Allergies Allergy Verified 03/30/21 13:49 - Acknowledgements Anesthesia Type Planned: MAC Pt an Appropriate Candidate for the Planned Anesthesia: Yes Alternatives and Risks of Anesthesia Discussed w Pt/Guardian: Yes Pt/Guardian Understands and Agrees with Anesthesia Plan: Yes PreAnesthesia Questionnaire - Past Health History Medical/Surgical History: Denies Medical/Surgical History HEENT History: Reports: Impaired Vision Other HEENT History: Wears glasses Cardiovascular History: Reports: Arrhythmia, Cardiomyopathy, Heart Failure, [place] (neurogenic stunning), Syncope Other Cardiovascular History: Atrial flutter, congenital coronary artery anomaly, hx afib with rvr-last echo showed returned to normal cardiac function Respiratory History: Reports: Sleep Apnea (wears CPAP at night) Gastrointestinal History: Reports: None Genitourinary History: Reports: Other (See Below) Other Genitourinary History: proteinuria, positive for difficulty urinating (decreased stream and double voiding and urgency) 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 Other Musculoskeletal History: tennis elbow surgery, left knee arthroscopy, right knee arhtroscopy x 2, bilateral shoulder surgeries Neurological History: Reports: Other (See Below) Other Neuro History: syncope Psychiatric History: Reports: None Endocrine/Metabolic History: Reports: None Hematologic History: Reports: None Immunologic History: Reports: None Oncologic (Cancer) History: Reports: None Dermatologic History: Reports: Other (See Below) Other Dermatologic History: skin lesions - Infectious Disease History Infectious Disease History: Reports: None - Past Surgical History Head Surgeries/Procedures: Reports: None HEENT Surgical History: Reports: Tonsillectomy Cardiovascular Surgical History: Reports: Cardiac Ablation, Other (See Below) Other Cardiovascular Surgeries/Procedures: Cardioversion, hx of cardiac catheterization- normal Respiratory Surgical History: Reports: None GI Surgical History: Reports: None Female Surgical History: Reports: None Male Surgical History: Reports: None Endocrine Surgical History: Reports: None Neurological Surgical History: Reports: None Musculoskeletal Surgical History: Reports: Arthroscopic Knee, Shoulder Surgery Other Musculoskeletal Surgeries/Procedures:: tennis elbow surgery, bilateral knee arthroscopies, bilateral shoulder surgeries, 2nd trigger finger surgery Oncologic Surgical History: Reports: None Dermatological Surgical History: Reports: None - SUBSTANCE USE Tobacco Use Status *Q: Never Tobacco User Tobacco Use Within Last Twelve Months: No Second Hand Smoke Exposure: No Days Per Week of Alcohol Use: 0 Number of Drinks Per Day: 0 Total Drinks Per Week: 0 Recreational Drug Use History: No - HOME MEDS Home Medications: Home Meds Cholecalciferol (Vitamin D3) [Vitamin D3] 5,000 unit PO DAILY 04/19/19 [History] Red Yeast Rice 600 mg PO DAILY 04/19/19 [History] Fish Oil/[place]-3 Fatty Acids [Fish Oil 1,000 MG] 1 gm PO DAILY 02/21/20 [History] traMADol [Ultram] 50 - 100 mg PO Q6H PRN #10 tab 03/28/21 [Rx] Cyanocobalamin (Vitamin B-12) [Vitamin B-12] 1,000 mcg PO DAILY 03/30/21 [History] - CURRENT (IN HOUSE) MEDS Current Meds: Current Medications Lactated Ringer's (Ringers, Lactated) 1,000 mls @ 125 mls/hr IV ASDIRECTED MINDI Stop: 03/31/21 23:00 Lidocaine/Sodium Bicarbonate (Lidocaine 1%/Sod Bicarbonate In Ns 8.4% 1 Ml Syringe) 0.25 ml IDERM ONETIME PRN PRN Reason: Prior to IV Start Stop: 03/31/21 18:00 Sodium Chloride (Sodium Chloride 0.9% 10 Ml Syringe) 10 ml FLUSH [id number] [facility] Stop: 03/31/21 18:00 Sodium Chloride (Sodium Chloride 0.9% 10 Ml Syringe) 10 ml FLUSH ASDIRECTED PRN PRN Reason: Keep Vein Open Stop: 03/31/21 18:00 Discontinued Medications Lactated Ringer's (Ringers, Lactated) 1,000 mls @ 125 mls/hr IV ASDIRECTED MINDI Stop: 03/20/21 23:00 Lidocaine/Sodium Bicarbonate (Lidocaine 1%/Sod Bicarbonate In Ns 8.4% 1 Ml Syringe) 0.25 ml IDERM ONETIME PRN PRN Reason: Prior to IV Start Stop: 03/20/21 18:00 Sodium Chloride (Sodium Chloride 0.9% 10 Ml Syringe) 10 ml FLUSH ASDIRECTED PRN PRN Reason: Keep Vein Open Stop: 03/20/21 18:00
[~2021-03-31 09:40] MED LIST changes: +Sodium Chloride 0.9% 10 ML Syringe FLUSH SCH
[2021-03-31] MEDS ORDERED: Lidocaine 1% 4 ML ONE (10:03)
[2021-03-31] MEDS ORDERED: Propofol 200 MG/20 ML SDV ONE (10:04)
[2021-03-31] MEDS ORDERED: Midazolam 1 MG/ML 2 ML SDV ONE (10:04)
[2021-03-31] MEDS ORDERED: fentaNYL 100 MCG/2 ML SDV ONE (10:04)
[2021-03-31] MEDS ORDERED: Triamcinolone Acetonide 40 MG/ML 1 ML SDV ONE (10:09)
[2021-03-31] MEDS ORDERED: Bupivacaine 0.25% 10 ML SDV ONE (10:09)
[2021-03-31] MEDS ORDERED: Lidocaine 1% 30 ML SDV ONE (10:10)
[2021-03-31] MEDS: Bupivacaine 0.25% 10 ML SDV ONE ×2 (11:35→11:46)
[2021-03-31] MEDS ORDERED: Lactated Ringers 1,000 ML ONE (11:36)
[2021-03-31] MEDS ORDERED: Ketorolac 15 MG/ML SDV ONE (11:45)
--- NOTE | 2021-03-31 11:57 | PCM48HPAN ---
Post Anesthesia Note - EVALUATION WITHIN 48HRS OF ANESTHETIC Vital Signs in Normal Range: Yes Patient Participated in Evaluation: Yes Respiratory Function Stable: Yes Airway Patent: Yes Cardiovascular Function Stable: Yes Hydration Status Stable: Yes Pain Control Satisfactory: Yes Nausea and Vomiting Control Satisfactory: Yes Mental Status Recovered: Yes Vital Signs: Last Vital Signs Temp 97.0 F 03/31/21 09:00 Pulse 59 L 03/31/21 09:00 Resp 16 03/31/21 09:00 BP 121/78 03/31/21 09:00 Pulse Ox 99 03/31/21 09:00 1153 56 12 97.4 108/74 97%
--- NOTE | 2021-04-20 21:30 | PCM.OPNOTE ---
- General Post-Op/Procedure Note Date of Surgery/Procedure: 03/31/21 Operative Procedure(s): right index finger a1 vaishnavi release and left third, fourth, and fifth a1 vaishnavi injections Pre Op Diagnosis: right index and left third fourth and fifth finger stenosing tenosynovitis Post-Op Diagnosis: Same Anesthesia Technique: Local, MAC Primary Surgeon: Rober Tapia Anesthesia Provider: Jessy Howell Dry Starch Supervisor: Deisy Mcduffie in mLs: 5 Complications: None Condition: Good
--- NOTE | 2021-04-20 22:13 | OR ---
DATE OF OPERATION: 03/31/2021 SURGEON: Rober Tapia MD OPERATION PERFORMED: Right index finger A1 vaishnavi release and left 3rd, 4th and 5th finger A1 vaishnavi injections. PREOPERATIVE DIAGNOSIS: Right index and left 3rd, 4th, and 5th finger stenosing tenosynovitis. POSTOPERATIVE DIAGNOSIS: Right index and left 3rd, 4th, and 5th finger stenosing tenosynovitis. ANESTHESIA: Local MAC. ANESTHESIA PROVIDER: Jessy Howell CRNA ELECTRICAL EQUIPMENT TECHNICIAN: Deisy Mcduffie PA-C ESTIMATED BLOOD LOSS: 5 mL. COMPLICATIONS: None. CONDITION: Stable. DESCRIPTION OF PROCEDURE: The patient was identified in the preoperative holding area. Proper site was marked and identified by the surgeon. The patient was taken back to the operating theater where after adequate anesthesia, the right upper extremity was sterilely prepped and draped in usual sterile fashion. OR time-out was performed. The patient did not receive any antibiotic indicated for soft tissue hand procedure. At this time, 1% lidocaine without epinephrine and 0.25% Marcaine without epinephrine were used to anesthetize over the A1 vaishnavi of the right index finger. Esmarch was then used as a tourniquet on the forearm. Transverse incision was made. Blunt dissection was taken down to the A1 vaishnavi and it was resected both proximally and distally, protecting the neurovascular bundles, it was found to be adequate release, stopping short of the A2 vaishnavi. At this time, adequate saline was irrigated through the wound. I did an intra- incisional steroid injection secondary to the patient having significant inflammatory reaction the last few times we did this. 4-0 nylon suture was used for closure of the skin. The patient had a sterile soft dressing applied. After this was completed, 0.5 mL of 40 mg Kenalog and 0.5 mL of 0.25% Marcaine were injected to the left 3rd, 4th, and 5th finger A1 pulleys under sterile technique. The patient tolerated all procedures well. MMODAL /[id number]
== END 2021-03-31 12:40 | disposition home or self-care (01) ==
LOC: JD.SDS 09:40
PROVIDERS: ATTEND Orthopaedic Surgery
DX: M65.841 Other synovitis and tenosynovitis, right hand (principal); M65.842 Other synovitis and tenosynovitis, left hand; G47.33 Obstructive sleep apnea (adult) (pediatric); I50.9 Heart failure, unspecified; I25.10 Atherosclerotic heart disease of native coronary artery without angina pectoris; I25.2 Old myocardial infarction; Z79.899 Other long term (current) drug therapy; Z88.8 Allergy status to other drugs, medicaments and biological substances; Z98.890 Other specified postprocedural states
CPT/HCPCS: 20553; 26055; J1885; J2250; J2704; J3010; J3301; J3490; J7120; 01810

== ENCOUNTER 2022-03-11 06:15 | Day surgery (SDC) | payer MEDICARE, BC ==
[~2022-03-11 06:15] MED LIST changes: +Clindamycin Phosphate in D5W 900 MG in Premix Bag 1 BAG IV SCH; +Lidocaine 1% 5 ML VIAL ONE; +Propofol 200 MG/20 ML SDV ONE
[2022-03-11] MEDS ORDERED: Bupivacaine 0.25% 10 ML SDV ONE (06:17)
[2022-03-11] MEDS ORDERED: Lidocaine 1% 10 ML MDV ONE (06:17)
[2022-03-11] MEDS ORDERED: ceFAZolin 2 GM Vial ONE (06:20)
[2022-03-11] MEDS ORDERED: Ketorolac 30 MG/ML SDV ONE (07:28)
[2022-03-11] MEDS ORDERED: traMADol 50 MG Tab PO ONE (08:08)
== END 2022-03-11 09:20 | disposition home or self-care (01) ==
LOC: JD.SDS 06:15
PROVIDERS: ATTEND Orthopaedic Surgery
DX: M65.312 Trigger thumb, left thumb (principal); M65.332 Trigger finger, left middle finger; M65.352 Trigger finger, left little finger; M65.842 Other synovitis and tenosynovitis, left hand; G47.33 Obstructive sleep apnea (adult) (pediatric); I25.10 Atherosclerotic heart disease of native coronary artery without angina pectoris; I25.2 Old myocardial infarction; I42.9 Cardiomyopathy, unspecified; Z88.8 Allergy status to other drugs, medicaments and biological substances; Z79.899 Other long term (current) drug therapy; Z98.890 Other specified postprocedural states; Z88.1 Allergy status to other antibiotic agents
CPT/HCPCS: 26055; A9270; J0690; J1885; J2704; J3490; J7120; 01810

== ENCOUNTER 2023-05-01 07:46 | Emergency (ER) | payer MEDICARE, BC ==
[2023-05-01] MEDS ORDERED: Sodium Chloride 0.9% 10 ML Syringe FLUSH PRN (08:08)
[2023-05-01 08:14] LABS: BASOPHILS PERCENT AUTO 0.1 % (0.0-1.0); EOSINOPHILS ABSOLUTE AUTO 0.1 K/mm3 (0.0-0.4); EOSINOPHILS PERCENT AUTO 0.8 % (0.0-6.0); HEMATOCRIT 42.6 % (42.0-52.0); HEMOGLOBIN 14.2 gm/dl (14.0-18.0); IMMATURE GRAN ABSOLUTE AUTO 0.02 K/mm3 (0.00-0.05); IMMATURE GRAN PERCENT AUTO 0.3 % (0.0-0.4); LYMPHOCYTES ABSOLUTE AUTO 0.8 K/mm3 (1.0-4.8); LYMPHOCYTES PERCENT AUTO 11.6 % (24.0-44.0); MEAN CORPUSCULAR HEMOGLOBIN 32.3 pg (28.0-32.0); MEAN CORPUSCULAR HGB CONC 33.3 g/dl (32.0-36.0); MONOCYTES ABSOLUTE AUTO 0.5 K/mm3 (0.0-0.8); MONOCYTES PERCENT AUTO 7.4 % (0.0-8.0); NEUTROPHILS ABSOLUTE AUTO 5.8 K/mm3 (1.8-7.7); NEUTROPHILS PERCENT AUTO 79.8 % (41.0-71.0); PLATELET COUNT,PLT 163 K/mm3 (150-400); RED BLOOD CELL COUNT 4.39 M/mm3 (4.52-5.90); WHITE BLOOD CELL COUNT,WBC 7.26 K/mm3 (3.9-11.3)
[2023-05-01] MEDS ORDERED: Sodium Chloride 0.9% 1,000 ML IV SCH (08:15)
[2023-05-01 08:34] LABS: A/G RATIO 0.8 (1-2); ANION GAP 10.2 (5-15); BILIRUBIN TOTAL 0.7 mg/dL (0.2-1.0); BUN/CREATININE RATIO 15.5 (14-18); CALCIUM 8.6 mg/dL (8.5-10.1); CREATININE 1.1 mg/dL (0.7-1.3); EST CRCL DRUG DOSING (CG) 70.55 mL/min; POTASSIUM,K 4.2 mEq/L (3.5-5.1); PROTEIN TOTAL,TP 6.6 g/dl (6.4-8.2)
[2023-05-01] MEDS ORDERED: Iopamidol 755 Mg/ML 100 ML Bottle IVPUSH ONE (09:24)
[2023-05-01] MEDS ORDERED: Sodium Chloride 0.9% 100 ML IV SCH (09:30)
== END 2023-05-01 10:30 | disposition home or self-care (01) ==
LOC: JD.ED 07:46
DX: R55 Syncope and collapse (principal); I50.9 Heart failure, unspecified; Z79.899 Other long term (current) drug therapy
CPT/HCPCS: 36415; 71275; 80053; 83735; 84484; 85025; 85379; 93005; 96360; 99285; J3490; J7030; Q9967; 93010; 99284

== ENCOUNTER 2023-05-07 01:43 | Emergency (ER) | payer MEDICARE, BC ==
[2023-05-07] MEDS ORDERED: Acetaminophen 325 MG Tab PO ONE (02:52)
[2023-05-07 03:04] LABS: BASOPHILS PERCENT AUTO 0.4 % (0.0-1.0); EOSINOPHILS ABSOLUTE AUTO 0.1 K/mm3 (0.0-0.4); EOSINOPHILS PERCENT AUTO 2.2 % (0.0-6.0); HEMATOCRIT 42.3 % (42.0-52.0); IMMATURE GRAN ABSOLUTE AUTO 0.01 K/mm3 (0.00-0.05); IMMATURE GRAN PERCENT AUTO 0.2 % (0.0-0.4); LYMPHOCYTES ABSOLUTE AUTO 0.8 K/mm3 (1.0-4.8); LYMPHOCYTES PERCENT AUTO 14.3 % (24.0-44.0); MEAN CORPUSCULAR HEMOGLOBIN 31.8 pg (28.0-32.0); MEAN CORPUSCULAR HGB CONC 33.1 g/dl (32.0-36.0); MEAN CORPUSCULAR VOLUME 96.1 fl (83.0-99.0); MEAN PLATELET VOLUME 8.9 fl (9.4-12.4); MONOCYTES ABSOLUTE AUTO 0.5 K/mm3 (0.0-0.8); MONOCYTES PERCENT AUTO 9.6 % (0.0-8.0); NEUTROPHILS ABSOLUTE AUTO 4.1 K/mm3 (1.8-7.7); NEUTROPHILS PERCENT AUTO 73.3 % (41.0-71.0); PLATELET COUNT,PLT 192 K/mm3 (150-400); WHITE BLOOD CELL COUNT,WBC 5.52 K/mm3 (3.9-11.3)
[2023-05-07] MEDS ORDERED: Diazepam 5 MG Tab PO ONE (03:20)
[2023-05-07 03:34] LABS: A/G RATIO 0.7 (1-2); ALBUMIN 2.9 g/dl (3.4-5.0); ANION GAP 12.2 (5-15); BILIRUBIN TOTAL 0.4 mg/dL (0.2-1.0); BUN/CREATININE RATIO 18.5 (14-18); CALCIUM 8.9 mg/dL (8.5-10.1); CREATININE 1.3 mg/dL (0.7-1.3); EST CRCL DRUG DOSING (CG) 68.54 mL/min; POTASSIUM,K 4.2 mEq/L (3.5-5.1); PROTEIN TOTAL,TP 7.1 g/dl (6.4-8.2)
== END 2023-05-07 04:46 | disposition home or self-care (01) ==
LOC: JD.ED 01:43
DX: M62.830 Muscle spasm of back (principal); Z86.16 Personal history of COVID-19
CPT/HCPCS: 36415; 71101; 80053; 83880; 84484; 85025; 93005; 99285; A9270; 93010; 99283